=== PATIENT | male | born 1960 | race African-American/Black ===

== ENCOUNTER 2016-11-26 23:06 | Inpatient (IN) | payer MEDICAID ==
[~2016-11-26] VITALS: Ht 188 cm; Wt 122.5 kg
[2016-11-26 23:02] VITALS: O2SAT 99
[~2016-11-26 23:06] MED LIST: ACYC-1 PO; ALBU.5I INH; AMLO10 PO; LIDO2SOL MT; LISI-360 PO
[2016-11-26 23:11] VITALS: PULSE 117; RESP 18; TEMP 98.3; O2SAT 95
--- NOTE | 2016-11-26 23:20 | PD ---
HPI Chief Complaint: Respiratory Distress Time Seen by Provider: 23:11 Travel History International Travel<30 days: No Contact w/Intl Traveler<30days: No Traveled to known affect area: No History of Present Illness HPI The patient is a 56 year old male who presents to the [facility] emergency department with a history of shortness of breath that has been worsening throughout the day today. The patient prior to ambulance services arrival was attempting to use another nebulizer treatment when he became acutely in distress. The patient's O2 saturation at that point was in the 90s with a respiratory rate in the 60s with altered mentation, diaphoresis. The patient's blood sugar was noted to be 167 prior to arrival. The patient reportedly has a history of COPD, congestive heart failure, and hypertension. Due to the patient 's respiratory distress patient was intubated. The patient was given formal grams of Ativan and 20 mg of etomidate for intubation. The patient was intubated prior to arrival with a size endotracheal tube. The patient on arrival is coughing against the tube and moving in the bed. The patient is unable to provide any other history due to being intubated prior to arrival. [facility] Past Medical History Narrative Medical The patient's past medical history as it can for hypertension, COPD, congestive heart failure, obesity, HIV Past Surgical History Narrative Surgical The patient's past surgical history was unable to be obtained. Social History Alcohol Use: No Tobacco Use: No Substance Use: No Allergies-Medications (Allergen,Severity, Reaction): Coded Allergies: No Known Allergies (Unverified , 11/26/16) Reported Meds & Prescriptions Reported Meds & Active Scripts Active Reported Tramadol (Tramadol HCl) 50 Mg Tab 50 Mg PO Q8H PRN Metformin (Metformin HCl) 500 Mg Tab 500 Mg PO BIDPC With meals Atorvastatin (Atorvastatin Calcium) 40 Mg Tab 40 Mg PO HS Epzicom (Abacavir-Lamivudine) 600-300 Mg Tab 1 Tab PO DAILY Hazardous agent; use appropriate precautions for handling & disposal. Prezcobix (Darunavir-Cobicistat) 800-150 Mg Tab 1 Tab PO DAILY Sulfamethoxazole-Tmp Ss Tablet (Sulfamethoxazole/Trimethoprim) 400 Mg-80 Mg Tablet Calcium 600 with Vitamin D (Calcium Carbonate-Cholecalciferol) 600-400 mg-Unit Tab 1 Tab PO DAILY Flexeril (Cyclobenzaprine HCl) 10 Mg Tab 10 Mg PO TID Gabapentin 300 Mg Cap 300 Mg PO HS Review of Systems ROS Limitations: Intubated Respiratory: Positive: Shortness of Breath Physical Exam Narrative General: The patient is a well-developed well-nourished male, intubated on arrival, cough against the endotracheal tube, agitated Head and Neck exam: Head is normocephalic atraumatic. Eyes: Pupils are equal round and reactive to light. The patient appears to have exophthalmos. Nose: Midline septum with pink mucous membranes Mouth: Dentition unremarkable. Moist mucus membranes. The patient has endotracheal tube in place that is obscured the posterior oropharynx being examined. Neck: No palpable lymphadenopathy. No nuchal rigidity. No thyromegaly. Cardiovascular: Sinus tachycardia in the 120s without murmurs, gallops, or rubs. No pulse deficit to the extremities and simultaneous auscultation and palpation of his radial artery. Lungs: Expiratory wheezes are audible anteriorly. The patient has crackles audible in bilateral bases. The patient is tachypneic with accessory muscle use. Abdomen: Soft, without tenderness to palpation in all 4 quadrants of the abdomen. No guarding, rebound, or rigidity. Normal bowel sounds are audible. No tenderness on palpation of McBurney's point. The patient has an umbilical hernia that is easily reducible. The patient has rectus diastases noted. Extremities: No clubbing or cyanosis. The patient has trace to 1+ pitting edema bilateral lower extremities. 2+ pulses in all 4 extremities. Neurologic Exam: Neurologic examination is limited as the patient was intubated prior to arrival. The patient is awake on arrival to this facility and moving all extremities equally, attempting to remove the endotracheal tube, coughing against the endotracheal tube on exam. Otherwise he is not following any commands. Skin Exam: No rash noted. Intact skin that is warm and dry. Data Data Last Documented VS Vital Signs Date Time Temp Pulse Resp B/P Pulse Ox O2 Delivery O2 Flow Rate FiO2 11/27/16 00:00 101 16 155/90 100 Ventilator 100 11/26/16 23:11 98.3 Orders Electrocardiogram (11/26/16 23:12) Complete Blood Count With Diff (11/26/16 23:12) Comprehensive Metabolic Panel (11/26/16 23:12) Creatine Kinase (Cpk) (11/26/16 23:12) Ckmb (Isoenzyme) Profile (11/26/16 23:12) Troponin I (11/26/16 23:12) B-Type Natriuretic Peptide (11/26/16 23:12) Prothrombin Time / Inr (Pt) (11/26/16 23:12) Act Partial Throm Time (Ptt) (11/26/16 23:12) Arterial Blood Gas (Abg) (11/26/16 23:12) Blood Culture (11/26/16:12) C-Reactive Protein (Crp) (11/26/16 23:12) Lipase (11/26/16 23:12) Urinalysis - C+S If Indicated (11/26/16 23:12) Magnesium (Mg) (11/26/16 23:) Thyroid Stimulating Hormone (11/26/16 23:12) Chest, Single Ap (11/26/16 23:12) Iv Access Insert/Monitor (11/26/16 23:12) Ecg Monitoring (11/26/16:12) Oximetry (11/26/16 23:12) Drug Screen, Random Urine (11/26/16 23:12) Alcohol (Ethanol) (11/26/16 23:12) Salicylates (Aspirin) (11/26/16 23:12) Tylenol (Acetaminophen) (11/26/16 23:12) Lactic Acid Sepsis Protocol (11/26/16 23:12) Urinary Catheter Insert/Apply (11/26/16 23:12) Juliet-Gastric Tube Insert/Mon (11/26/16 23:12) Propofol 1000 Mg/100 Ml Inj (Diprivan 10 (11/26/16 23:15) ^ Infusion (11/26/16 23:15) RASS (11/26/16 23:15) Neurological Rass Scale LESLIE.Q2H (11/26/16 23:15) Sodium Chloride 0.9% Flush (Ns Flush) (11/26/16 23:30) Furosemide Inj (Lasix Inj) (11/26/16 23:30) Methylprednisolone So Succ Inj (Solumedr (11/26/16 23:30) Albuterol-Ipratropium Neb (Duoneb Neb) (11/26/16 23:30) Midazolam Inj (Versed Inj) (11/26/16 23:30) Midazolam 100 Mg/Ml Inj (Versed 100 Mg/M (11/26/16 23:30) Neurological Rass Scale Q30MX2,Q2HX4,Q4H (11/26/16 23:28) Fentanyl Drip (Fentanyl Drip) (11/26/16 23:29) Midazolam Inj (Versed Inj) (11/26/16 23:34) Midazolam 100 Mg/Ml Inj (Versed 100 Mg/M (11/26/16 23:51) Neurological Rass Scale Q30MX2,Q2HX4,Q4H (11/26/16 23:53) Fentanyl Drip (Fentanyl Drip) (11/27/16 00:00) Ct Brain W/O Iv Contrast(Rout) (11/27/16 00:26) Admit Order (Ed Use Only) (11/27/16 00:31) CKMB (11/26/16 23:35) CKMB% (11/26/16 23:35) Labs Laboratory Tests Test 11/26/16 11/27/16 23:35 00:20 White Blood Count 12.3 TH/MM3 Red Blood Count 6.04 MIL/MM3 Hemoglobin 18.0 GM/DL Hematocrit 54.4 % Mean Corpuscular Volume 90.1 FL Mean Corpuscular Hemoglobin 29.8 PG Mean Corpuscular Hemoglobin 33.1 % Concent Red Cell Distribution Width 16.1 % Platelet Count 181 TH/MM3 Mean Platelet Volume 9.2 FL Neutrophils (%) (Auto) 69.9 % Lymphocytes (%) (Auto) 17.8 % Monocytes (%) (Auto) 8.4 % Eosinophils (%) (Auto) 2.9 % Basophils (%) (Auto) 1.0 % Neutrophils # (Auto) 8.6 TH/MM3 Lymphocytes # (Auto) 2.2 TH/MM3 Monocytes # (Auto) 1.0 TH/MM3 Eosinophils # (Auto) 0.4 TH/MM3 Basophils # (Auto) 0.1 TH/MM3 CBC Comment DIFF FINAL Differential Comment Prothrombin Time 10.7 SEC Prothromb Time International 1.0 RATIO Ratio Activated Partial 28.0 SEC Thromboplast Time Sodium Level 140 MEQ/L Potassium Level 3.7 MEQ/L Chloride Level 103 MEQ/L Carbon Dioxide Level 25.1 MEQ/L Anion Gap 12 MEQ/L Blood Urea Nitrogen 13 MG/DL Creatinine 2.03 MG/DL Estimat Glomerular Filtration 42 ML/MIN Rate Random Glucose 113 MG/DL Lactic Acid Level 5.0 mmol/L Calcium Level 9.2 MG/DL Magnesium Level 2.1 MG/DL Total Bilirubin 0.4 MG/DL Aspartate Amino Transf 23 U/L (AST/SGOT) Alanine Aminotransferase 24 U/L (ALT/SGPT) Alkaline Phosphatase 71 U/L Total Creatine Kinase 469 U/L Creatine Kinase MB 6.0 NG/ML Creatine Kinase MB % 1.3 % Troponin I 0.40 NG/ML C-Reactive Protein 1.68 MG/DL B-Type Natriuretic Peptide 32 PG/ML Total Protein 8.5 GM/DL Albumin 4.0 GM/DL Lipase 187 U/L Thyroid Stimulating Hormone 0.837 uIU/ML 3rd Gen Salicylates Level LESS THAN 1.7 MG/DL Acetaminophen Level LESS THAN 2.0 MCG/ML Ethyl Alcohol Level LESS THAN 3 MG/DL Blood Gas Puncture Site RT RADIAL Blood Gas Patient Temperature 98.6 Blood Gas HCO3 29 mmol/L Blood Gas Base Excess 3.3 mmol/L Blood Gas Oxygen Saturation 96 % Arterial Blood pH 7.35 Arterial Blood Partial 54 mmHg Pressure CO2 Arterial Blood Partial 116 mmHG Pressure O2 Arterial Blood Oxygen Content 24.7 Vol % Arterial Blood 1.1 % Carboxyhemoglobin Arterial Blood Methemoglobin 0.8 % Blood Gas Hemoglobin 18.2 G/DL Oxygen Delivery Device VENTILATOR Blood Gas Ventilator Setting AC16/500/5PEEP Blood Gas Inspired Oxygen 10 % MDM Medical Decision Making Medical Screen Exam Complete: Yes Emergency Medical Condition: Yes Medical Record Reviewed: Yes Interpretation(s) Last Impressions Chest X-Ray 11/26/16 3358 Signed Impressions: Service Date/Time: Saturday, November 26, 2016 23:10 - CONCLUSION: ET tube in good position. Jone Reyes MD Differential Diagnosis Congestive heart failure exacerbation, versus COPD exacerbation, versus pneumonia, versus pleural effusion, versus pneumothorax Narrative Course During the course of the patients emergency department visit, the patients history, examination, and differential diagnosis were reviewed with the patient. The patient had IV access obtained and blood work sent for analysis. The patient had an EKG done on arrival. The patient's EKG shows a sinus rhythm with a sinus tachycardia rate of 114, no acute ST segment elevation or depression. QRS duration is 94 ms, QTC 393 ms. Respiratory therapy was available at the patient's bedside to assist with care and placement of the patient on a ventilator. An ABG was ordered on the ventilator. The patient was initially provided propofol for sedation on the ventilator. The patient continued to be agitated and was given fentanyl for sedation as an IV drip. The patient was given Solu-Medrol 125 mg IV, DuoNeb 3. The patient was given Lasix 80 mg IV. Again, the patient continued to be agitated and bucking the vent. The patient was placed on Versed 2.5 mg IV followed by a Versed drip. The patients laboratory studies were reviewed and remarkable for a white count of 12.3, hemoglobin 18, platelets 181 with 8.4 monocytes. CMP is remarkable for creatinine of 2.03, glucose 113, CPK 469, MB percent 1.3, troponin I 0.40, C -reactive protein 1.60, BNP 32, lipase 187, TSH 0.837, PT PTT within normal limits. Salicylate less than 1.7, acetaminophen less than 2, alcohol less than 3 Radiology studies were reviewed and remarkable for a chest x-ray that shows an endotracheal tube to be in good position, cardiomegaly, no other acute abnormality. CT scan of the brain shows no acute abnormality. The patients results were discussed with the patient, including the plan of care. I explained that further testing and/ or monitoring is indicated based on the patients history, examination, and/ or laboratory findings. Therefore, I recommended admission for additional evaluation. The patient expressed understanding and was agreeable with this plan. The patient was admitted to the hospital in guarded condition and sent to a bed under the care of the geodetic surveyor technologist service. Critical Care Narrative Aggregate critical care time was 35 minutes. Time to perform other separately billable procedures was not included in the critical care time. My time did not include minutes spent treating any other patients simultaneously or on activities that did not directly contribute to the patient's treatment. The services I provided to this patient were to treat and/or prevent clinically significant deterioration that could result in: Cardiovascular collapse, versus hypoxemia, versus cardiac arrhythmia I provided critical care services requiring my management, as noted below: Chart data review, documentation time, medication orders and management, vital sign assessments/reviewing monitor data, ordering and reviewing lab tests, ordering and interpreting/reviewing x-rays and diagnostic studies, care of the patient and discussion of the patient with the admitting physicians. Physician Communication Physician Communication The patient's case was discussed with Dr. Klein who did agree to admit the patient for further evaluation and treatment at this time. Diagnosis Primary Impression: Respiratory failure Qualified Code: J96.00 - Acute respiratory failure, unspecified whether with hypoxia or hypercapnia Additional Impression: Hypercapnia Admitting Information Admitting Physician Requests: Admit Jolene Ortega MD Nov 26, 2016 23:20
[2016-11-26] MEDS: PROPOFOL 1000 MG/100 ML INJ 100 ML IV SCH (23:22)
[2016-11-26 23:24] VITALS: PULSE 110; RESP 16; O2SAT 100
[2016-11-26] MEDS ORDERED: fentaNYL DRIP 250 ML ONE (23:29)
[2016-11-26] MEDS ORDERED: MIDAZOLAM HCL 5 MG/5 ML VIAL IV PUSH ONE (23:30)
[2016-11-26] MEDS ORDERED: MIDAZOLAM 100 MG/100 ML INJ 100 ML IV SCH (23:30)
[2016-11-26] MEDS ORDERED: FUROSEMIDE 100 MG/10 ML VIAL IVP ONE (23:30)
[2016-11-26] MEDS ORDERED: SODIUM CHLORIDE 0.9% FLUSH 10 ML FLUSH IVF PRN (23:30)
[2016-11-26] MEDS ORDERED: methylPREDNISolone SOD SUCC 125 MG/2 ML VIAL IVP ONE (23:30)
[2016-11-26] MEDS: RESP: ALBUTEROL 2.5 MG/IPRATROPIUM 0.5 MG NEB (SCH) INH (23:33)
[2016-11-26] MEDS ORDERED: MIDAZOLAM HCL 5 MG/ML VIAL (1 ML) ONE (23:34)
[2016-11-26] MEDS ORDERED: MIDAZOLAM 100 MG/100 ML INJ 100 ML ONE (23:51)
[2016-11-26] MEDS: fentaNYL DRIP 250 ML IV SCH (23:59)
[2016-11-27] VITALS (31 sets, daily range): BP systolic 104–155; BP diastolic 63–99; PULSE 79–103; RESP 13–24; TEMP 97.7–99.2; O2SAT 94–100
[2016-11-27 00:03] LABS: AUTOMATED NEUTROPHIL # 8.6 TH/MM3 (1.8-7.7); BASOPHIL # 0.1 TH/MM3 (0-0.2); EOSINOPHIL # 0.4 TH/MM3 (0-0.4); EOSINOPHIL % 2.9 % (0.0-4.0); HEMATOCRIT 54.4 % (39.0-51.0); HEMO FLAGS DIFF FINAL; LYMPH % 17.8 % (9.0-44.0); LYMPHOCYTE # 2.2 TH/MM3 (1.0-4.8); MEAN CELL VOLUME 90.1 FL (80.0-100.0); MEAN CORPUSCULAR HEMOGLOBIN 29.8 PG (27.0-34.0); MEAN CORPUSCULAR HGB CONC 33.1 % (32.0-36.0); MONO % 8.4 % (0.0-8.0); NEUT % 69.9 % (16.0-70.0); PLATELET COUNT 181 TH/MM3 (150-450); RED BLOOD COUNT 6.04 MIL/MM3 (4.50-5.90); RED CELL DISTRIBUTION WIDTH 16.1 % (11.6-17.2); WHITE BLOOD COUNT 12.3 TH/MM3 (4.0-11.0)
--- NOTE | 2016-11-27 00:11 | RADRPT ---
EXAM DATE/TIME: 11/26/2016 23:10 [facility] COMPARISON: No previous studies available for comparison. INDICATIONS : Post intubation. MEDICAL HISTORY : Unobtainable. SURGICAL HISTORY : Unobtainable. ENCOUNTER: Initial ACUITY: 1 day PAIN SCORE: Non-responsive. LOCATION: Bilateral chest FINDINGS: Endotracheal tube tip well above the halina. Gastric tube traverses the [id number]. Moderate car diomegaly. Central bronchopleural markings well delineated. No focal infiltrates seen. CONCLUSION: ET tube in good position. Jone Reyes MD on November 27, 2016 at 0:10 Board Certified Radiologist. This report was verified electronically.
[2016-11-27 00:14] LABS: PROTHROMBIN TIME - PATIENT 10.7 SEC (9.8-11.6)
[2016-11-27 00:42] LABS: BLOOD GAS BASE EXCESS 3.3 mmol/L (-2-2); BLOOD GAS CARBOXYHEMOGLOBIN 1.1 % (0-4); BLOOD GAS HCO3 29 mmol/L (22-26); BLOOD GAS METHEMOGLOBIN 0.8 % (0-2); BLOOD GAS O2 HGB SATURATION 96 % (90-100); BLOOD GAS OXYGEN CONTENT 24.7 Vol % (12.0-20.0); BLOOD GAS PCO2 54 mmHg (38-42); BLOOD GAS PO2 116 mmHG (61-120); BLOOD GAS TOTAL HGB 18.2 G/DL (12.0-16.0); TEMP CORR TO 98.6
[2016-11-27 00:43] LABS: CRITICAL VALUE YES; DRAW SITE RT RADIAL; FIO2 10 %; NUMBER OF ARTERIAL PUNCTURES 1; OXYGEN DEVICE VENTILATOR; STAT YES; ULNAR PULSE PRESENT; VENT SETTINGS AC16/500/5PEEP
[2016-11-27 00:48] LABS: ALKALINE PHOSPHATASE 71 U/L (45-117); ALT (GPT) 24 U/L (12-78); ANION GAP 12 MEQ/L (5-15); AST (GOT) 23 U/L (15-37); BICARBONATE 25.1 MEQ/L (21.0-32.0); BLOOD UREA NITROGEN 13 MG/DL (7-18); CHLORIDE 103 MEQ/L (98-107); CREATINE KINASE 469 U/L (39-308); GLOMERULAR FILTRATION RATE 42 ML/MIN (>89); MAGNESIUM 2.1 MG/DL (1.5-2.5); POTASSIUM 3.7 MEQ/L (3.5-5.1); SODIUM (NA) 140 MEQ/L (136-145); TOTAL BILIRUBIN ADULT 0.4 MG/DL (0.2-1.0)
[2016-11-27 00:49] LABS: ACETAMINOPHEN LESS THAN 2.0 MCG/ML (10.0-30.0); ALCOHOL LESS THAN 3 MG/DL (0-5)
[2016-11-27] MEDS ORDERED: RESP: ALBUTEROL 2.5 MG/3 ML NEB (PRN) INH (01:00)
[2016-11-27] MEDS ORDERED: MISCELLANEOUS NURSING INFORMATION XX SCH (01:00)
[2016-11-27] MEDS ORDERED: SODIUM CHLORIDE 0.9% FLUSH 10 ML FLUSH IV FLUSH PRN (01:00)
[2016-11-27] MEDS ORDERED: CHLORHEXIDINE GLUCONATE 2 % 1 PACK (2 CLOTHS) TOP PRN (01:00)
[2016-11-27] MEDS ORDERED: ACETAMINOPHEN 325 MG TAB PO PRN (01:00)
[2016-11-27] MEDS ORDERED: DARU1TAB2 PO (01:03)
[2016-11-27] MEDS ORDERED: GABA300C5 PO (01:03)
[2016-11-27] MEDS ORDERED: TRAM50TA PO (01:03)
[2016-11-27] MEDS ORDERED: CYCL1TAB29 PO (01:03)
[2016-11-27] MEDS ORDERED: CALC1TAB87 PO (01:03)
[2016-11-27] MEDS ORDERED: SULF1TAB58 (01:03)
[2016-11-27] MEDS ORDERED: METF500T PO (01:03)
[2016-11-27] MEDS ORDERED: ATOR40TA16 PO (01:03)
[2016-11-27] MEDS ORDERED: METF-758 (01:03)
[2016-11-27] MEDS ORDERED: EPZITAB3 PO (01:03)
--- NOTE | 2016-11-27 01:37 | HHI.HP ---
HPI Service Critical Care Medicine Primary Care Physician Unknown Admission Diagnosis Respiratory failure Diagnosis: Travel History International Travel<30 Days: No Contact w/Intl Traveler <30 Da: No Traveled to Known Affected Are: No Sepsis Criteria Sepsis Criteria (SIRS+source): Infect source susp/known Severe Sepsis (+one): Lactate >2 Multiple Organ Dysfunction Syn: Evidence -2 organs failing Criteria Outcome: Meets severe sepsis criteria History of Present Illness HPI 56-year-old male was brought to the ER with a history of progressive shortness of breath for about a day. EMS was called by patient's and on their arrival he was maintaining O2 sats in the 90s however was breathing in the 60s with altered mental status and diaphoresis. Reportedly earlier in the day he had hit his head pretty hard while reaching for his nebulizer and since then had altered mental status. Patient received Ativan and etomidate in the field and was intubated prior to arrival in the ER. He was placed on propofol/ fentanyl and subsequently on Versed gtt by ER physician due to agitation. [facility] Past Medical History Narrative Medical The patient's past medical history as it can for hypertension, COPD, congestive heart failure, obesity, HIV Allergies-Medications (Allergen,Severity, Reaction): Coded Allergies: No Known Allergies (Unverified , 11/26/16) Reported Meds & Prescriptions Reported Meds & Active Scripts Active Zovirax 800 Mg Tab (Acyclovir) 800 Mg Tab 800 Mg PO 5 TIMES A DAY 7 Days Lidocaine Viscous (Lidocaine HCl) 2 % [place] 2 % MT Q3-4HPRN 1 Days Reported Lisinopril 10 Mg Tab 10 Mg PO DAILY Norvasc (Amlodipine Besylate) 10 Mg Tab 10 Mg PO DAILY Proventil Conc Ud 0.5% (2.5 Mg/0.5 Ml) (Albuterol Sulfate) 2.5 Mg/0.5 Ml Inha 2.5 Mg INH other meds to be clarified Review of Systems ROS Limitations: Intubated Respiratory: Positive: Shortness of Breath Physical Exam Past Family Social History Allergies: Coded Allergies: No Known Allergies (Unverified , 11/26/16) Physical Exam Vital Signs Vital Signs Date Time Temp Pulse Resp B/P Pulse Ox O2 Delivery O2 Flow Rate FiO2 11/27/16 00:36 103 16 144/90 100 Ventilator 11/27/16 00:00 101 16 155/90 100 Ventilator 100 11/26/16 23:24 110 16 100 Ventilator 100 11/26/16 23:14 112 20 100 11/26/16 23:11 98.3 117 18 95 Physical Exam Narrative General: The patient is a well-developed well-nourished male, currently sedated, orally intubated on mechanical ventilation. Head and Neck exam: Head is normocephalic atraumatic. Eyes: Pupils are equal round and reactive to light. Nose: Midline septum with pink mucous membranes Mouth: Dentition unremarkable. Moist mucus membranes. ETT in place Neck: No palpable lymphadenopathy. No nuchal rigidity. No thyromegaly. Cardiovascular: S1-S2 regular no gallop or murmur. Lungs: Orally intubated on mechanical ventilation, and entry decreased bilaterally at bases, scattered crackles and rhonchi. No wheezing appreciated currently Abdomen: Soft, without tenderness to palpation in all 4 quadrants of the abdomen. No guarding, rebound, or rigidity. Normal bowel sounds are audible. No tenderness on palpation of McBurney's point. The patient has an umbilical hernia that is easily reducible. The patient has rectus diastases noted. Extremities: No clubbing or cyanosis. The patient has trace to 1+ pitting edema bilateral lower extremities. 2+ pulses in all 4 extremities. Neurologic Exam: Neurologic examination is limited as the patient was intubated prior to arrival. Currently sedated, orally intubated on mechanical ventilation. Reportedly was difficult to sedate and was moving all 4 extremities though not following commands following arrival in the ER. Pupils 3 mm bilaterally reactive Skin Exam: No rash noted. Intact skin that is warm and dry. Laboratory Laboratory Tests Test 11/26/16 11/27/16 23:35 00:20 White Blood Count 12.3 Red Blood Count 6.04 Hemoglobin 18.0 Hematocrit 54.4 Mean Corpuscular Volume 90.1 Mean Corpuscular Hemoglobin 29.8 Mean Corpuscular Hemoglobin 33.1 Concent Red Cell Distribution Width 16.1 Platelet Count 181 Mean Platelet Volume 9.2 Neutrophils (%) (Auto) 69.9 Lymphocytes (%) (Auto) 17.8 Monocytes (%) (Auto) 8.4 Eosinophils (%) (Auto) 2.9 Basophils (%) (Auto) 1.0 Neutrophils # (Auto) 8.6 Lymphocytes # (Auto) 2.2 Monocytes # (Auto) 1.0 Eosinophils # (Auto) 0.4 Basophils # (Auto) 0.1 CBC Comment DIFF FINAL Differential Comment Prothrombin Time 10.7 Prothromb Time International 1.0 Ratio Activated Partial 28.0 Thromboplast Time Sodium Level 140 Potassium Level 3.7 Chloride Level 103 Carbon Dioxide Level 25.1 Anion Gap 12 Blood Urea Nitrogen 13 Creatinine 2.03 Estimat Glomerular Filtration 42 Rate Random Glucose 113 Lactic Acid Level 5.0 Calcium Level 9.2 Magnesium Level 2.1 Total Bilirubin 0.4 Aspartate Amino Transf 23 (AST/SGOT) Alanine Aminotransferase 24 (ALT/SGPT) Alkaline Phosphatase 71 Total Creatine Kinase 469 Creatine Kinase MB 6.0 Creatine Kinase MB % 1.3 Troponin I 0.40 C-Reactive Protein 1.68 B-Type Natriuretic Peptide 32 Total Protein 8.5 Albumin 4.0 Lipase 187 Thyroid Stimulating Hormone 0.837 3rd Gen Salicylates Level LESS THAN 1.7 Acetaminophen Level LESS THAN 2.0 Ethyl Alcohol Level LESS THAN 3 Blood Gas Puncture Site RT RADIAL Blood Gas Patient Temperature 98.6 Blood Gas HCO3 29 Blood Gas Base Excess 3.3 Blood Gas Oxygen Saturation 96 Arterial Blood pH 7.35 Arterial Blood Partial 54 Pressure CO2 Arterial Blood Partial 116 Pressure O2 Arterial Blood Oxygen Content 24.7 Arterial Blood 1.1 Carboxyhemoglobin Arterial Blood Methemoglobin 0.8 Blood Gas Hemoglobin 18.2 Oxygen Delivery Device VENTILATOR Blood Gas Ventilator Setting AC16/500/5PEEP Blood Gas Inspired Oxygen 10 Date/Time Procedure Status Source Growth 11/26/16 23:35 Aerobic Blood Culture Received Blood Peripheral Pending 11/26/16 23:35 Anaerobic Blood Culture Received Blood Peripheral Pending Result Diagram: 11/26/16 2335 11/26/16 2335 Imaging Last Impressions Chest X-Ray 11/26/16 2312 Signed Impressions: Service Date/Time: Saturday, November 26, 2016 23:10 - CONCLUSION: ET tube in good position. Jone Reyes MD Septic Shock Reassessment Lungs: Course Skin: Warm Peripheral Pulses: Bounding Right Radial Capillary Refill: Brisk Assessment and Plan Assessment and Plan 56-year-old male with: Acute respiratory failure requiring mechanical ventilation Suspected COPD exacerbation Suspect obesity hypoventilation Possible severe sepsis based on criteria Positive troponin Morbid obesity HIV positive History of CHF History of hypertension Plan: Neuro: Sedation with propofol/Versed/fentanyl gtt., daily sedation vacation. Awaiting head CT in view of altered mental status prior to arrival. Cardiovascular: Watch for hypotension. We will use labetalol when necessary for hypertension as needed. Cycle cardiac enzymes. Borderline elevated troponin noted. If head CT negative for bleed we'll initiate aspirin. BNP not elevated currently. We'll initiate maintenance IV fluids. Pulmonary: Continue mechanical ventilation, vent bundle, bronchodilators, Solu- Medrol. ID: Follow-up sputum and blood cultures. We'll initiate empiric antibiotic coverage with IV cefepime and Zithromax. HIV positive. Awaiting clarification of antiretroviral meds. Repeat lactic acid level with next lab draw Heme: Follow CBC. Polycythemia noted probably secondary to chronic hypoxia. Endocrine: SSI for glycemic control as needed. GI: Start tube feeds with Glucerna 1.5 and advanced to goal as tolerated. Prophylaxis: PPI/SCDs. If head CT negative, plan to initiate subcutaneous heparin. Condition critical. Time spent on critical care excluding procedures 60 minutes Akira Klein MD Nov 27, 2016 01:37
[2016-11-27 01:51] LABS: LACTIC ACID GHOST NOT REPORTABLE
[2016-11-27 02:22] LABS: BACTERIA, URINE MOD /hpf; BLOOD, URINE SMALL (NEG); GLUCOSE,URINE NEG (NEG); HYALINE CAST, URINE 22 /lpf (RARE); KETONE, URINE NEG (NEG); MUCUS URINE FEW /lpf (OCC); NITRITE,URINE NEG (NEG); PH, URINE 5.5 (5.0-8.5); RENAL EPITHELIAL CELLS 4 /hpf; SQUAMOUS EPITHELIAL CELL URINE <1 /hpf (0-5); URINE COLOR YELLOW (YELLW/STRAW)
[2016-11-27 02:25] LABS: COMMENT (UR) CULTURE INDICATED; CULTURE IF INDICATED CULTURE INDICATED
--- NOTE | 2016-11-27 02:35 | RADRPT ---
EXAM DATE/TIME: 11/27/2016 02:21 [facility] COMPARISON: No previous studies available for comparison. INDICATIONS : Altered mental status. Family states patient hit head earlier today. RADIATION DOSE: 50.94 CTDIvol (mGy) MEDICAL HISTORY : Non-responsive. SURGICAL HISTORY : Non-responsive. ENCOUNTER: Initial ACUITY: 1 day PAIN SCALE: Non-responsive LOCATION: cranial TECHNIQUE: Multiple contiguous axial images were obtained of the head. Using automated exposure control and adj ustment of the mA and/or kV according to patient size, radiation dose was kept as low as reasonably a chievable to obtain optimal diagnostic quality images. DICOM format image data is available electro nically for review and comparison. FINDINGS: Patient's head is canted in the gantry. CEREBRUM: The ventricles are normal for age. No evidence of midline shift, mass lesion, hemorrhage or acute in farction. No extra-axial fluid collections are seen. POSTERIOR FOSSA: The cerebellum and brainstem are intact. The 4th ventricle is midline. The cerebellopontine angle i s unremarkable. EXTRACRANIAL: The visualized portion of the orbits is intact. SKULL: The calvaria is intact. No evidence of skull fracture. CONCLUSION: No acute findings in the brain. Jone Reyes MD on November 27, 2016 at 2:32 Board Certified Radiologist. This report was verified electronically.
[2016-11-27] MEDS: AZITHROMYCIN INJ 500 MG in SODIUM CHLOR 0.9% 250 ML INJ 250 ML IV SCH (03:30)
[2016-11-27] MEDS: RESP: ALBUTEROL 2.5 MG/IPRATROPIUM 0.5 MG NEB (SCH) NEB ×4 (03:34→19:43)
[2016-11-27] MEDS: SODIUM CHLOR 0.9% 1000 ML INJ 1,000 ML IV SCH ×2 (03:42→21:13)
[2016-11-27] MEDS: CEFEPIME INJ 2,000 MG in SODIUM CHLORIDE 0.9% INJ 100 ML IV SCH ×2 (03:45→13:12)
[2016-11-27] MEDS: CHLORHEXIDINE GLUCONATE 2 % 1 PACK (2 CLOTHS) TOP SCH (03:47)
[2016-11-27] MEDS: PROPOFOL 1000 MG/100 ML INJ 100 ML IV SCH ×6 (03:48→22:39)
[2016-11-27] MEDS: INSULIN ASPART SUPPLEMENTAL SCALE SQ SCH ×3 (05:40→18:00)
[2016-11-27] MEDS: SODIUM CHLORIDE 0.9% FLUSH 10 ML FLUSH IV FLUSH SCH ×2 (07:37→21:07)
[2016-11-27] MEDS: PANTOPRAZOLE SODIUM 40 MG VIAL IV SCH (07:37)
[2016-11-27] MEDS: CHLORHEXIDINE 0.12% (ORAL KIT) 15 ML CUP MT SCH ×2 (07:37→20:00)
[2016-11-27 08:19] LABS: CKMB 5.3 NG/ML (0.5-3.6)
[2016-11-27] MEDS: ABACAVIR SULFATE 300 MG TAB PO SCH (08:44)
[2016-11-27] MEDS ORDERED: NON-FORMULARY DRUG (Abacavir-Lamivudine (Epzicom) 1 TAB) PO SCH (09:00)
[2016-11-27] MEDS ORDERED: PATIENT OWN MEDICATION PO SCH (09:00)
[2016-11-27 12:14] LABS: BLOOD GAS BASE EXCESS -1.3 mmol/L (-2-2); BLOOD GAS CARBOXYHEMOGLOBIN 1.2 % (0-4); BLOOD GAS HCO3 23 mmol/L (22-26); BLOOD GAS METHEMOGLOBIN 1.1 % (0-2); BLOOD GAS O2 HGB SATURATION 94 % (90-100); BLOOD GAS OXYGEN CONTENT 22.8 Vol % (12.0-20.0); BLOOD GAS PCO2 43 mmHg (38-42); BLOOD GAS PO2 83 mmHg (61-120); BLOOD GAS TOTAL HGB 17.3 G/DL (12.0-16.0); CRITICAL VALUE NO; DRAW SITE RRA; FIO2 40 %; NUMBER OF ARTERIAL PUNCTURES 1; OXYGEN DEVICE VENTILATOR; STAT NO; TEMP CORR TO 98.6; ULNAR PULSE PRESENT; VENT SETTINGS PRVC16/600 PEEP5 1.0
[2016-11-27 14:51] LABS: CKMB 4.1 NG/ML (0.5-3.6)
--- NOTE | 2016-11-27 18:21 | ECHRPT ---
Indication: CONCLUSIONS Normal left ventricular size. Severe concentric left ventricular hypertrophy. The left ventricular systolic function is hyperdynamic with an estimated ejection fraction in the ra nge of 65- 70%. No regional wall motion abnormalities are present. Slight aortic valve sclerosis is present. Mild aortic valve regurgitation. The pulmonary valve is not well visualized. BP: 112 / 67 HR: 91 Rhythm: Sinus MEASUREMENTS (Male / Female) Normal Values Technical Quality:Technically difficult study 2D ECHO LV Diastolic Diameter PLAX 3.6 cm 4.2 - 5.9 / 3.9 - 5.3 cm LV Systolic Diameter PLAX 2.2 cm IVS Diastolic Thickness 2.5 cm 0.6 - 1.0 / 0.6 - 0.9 cm LVPW Diastolic Thickness 2.5 cm 0.6 - 1.0 / 0.6 - 0.9 cm LV Relative Wall Thickness 1.4 RV Internal Dim ED PLAX 2.3 cm LVOT Diameter 2.6 cm M-MODE Aortic Root Diameter MM 4.1 cm DOPPLER AV Peak Velocity 151.0 cm/s AV Peak Gradient 9.1 mmHg AI Peak Velocity 321.5 cm/s AI Peak Gradient 41.3 mmHg AI Pressure Half Time 615.5 ms LVOT Peak Velocity 115.0 cm/s LVOT Peak Gradient 5.3 mmHg AV Area Cont Eq pk 4.0 cm MV Area PHT 3.9 cm Mitral E Point Velocity 54.8 cm/s Mitral A Point Velocity 74.0 cm/s Mitral E to A Ratio 0.7 PV Peak Velocity 117.0 cm/s PV Peak Gradient 5.5 mmHg FINDINGS LEFT VENTRICLE Normal left ventricular size. Severe concentric left ventricular hypertrophy. The left ventricular systolic function is hyperdynamic with an estimated ejection fraction in the ra nge of 65- 70%. No regional wall motion abnormalities are present. RIGHT VENTRICLE Normal right ventricular size and systolic function. LEFT ATRIUM The left atrial size is normal. RIGHT ATRIUM The right atrial size is normal. ATRIAL SEPTUM Normal atrial septal thickness without atrial level shunting by limited color doppler interrogation. AORTA The aortic root and proximal ascending aorta are normal in size on limited imaging. MITRAL VALVE Structurally normal mitral valve. No mitral valve stenosis or regurgitation. AORTIC VALVE Slight aortic valve sclerosis is present. Mild aortic valve regurgitation. TRICUSPID VALVE Structurally normal tricuspid valve. No tricuspid valve stenosis or regurgitation. PULMONARY VALVE The pulmonary valve is not well visualized. VESSELS The inferior vena cava is normal in size. PERICARDIUM No pericardial effusion. Jose Ortega MD (Electronically Signed) Final Date:27 November 2016 18:20
[2016-11-27] MEDS ORDERED: SODIUM CHLORID 0.9% 500 ML INJ 500 ML IV ONE (19:00)
[2016-11-27] MEDS: ATORVASTATIN 40 MG TAB PO SCH (21:06)
[2016-11-27] MEDS: GABAPENTIN 300 MG CAP PO SCH (21:06)
[2016-11-27] MEDS: methylPREDNISolone SOD SUCC 125 MG/2 ML VIAL IV PUSH SCH (21:06)
[2016-11-27] MEDS: fentaNYL DRIP 250 ML IV SCH (22:40)
[2016-11-28] VITALS (27 sets, daily range): BP systolic 134–188; BP diastolic 80–107; PULSE 74–107; RESP 6–23; TEMP 98.2–100.2; O2SAT 91–100
[2016-11-28] MEDS: RESP: ALBUTEROL 2.5 MG/IPRATROPIUM 0.5 MG NEB (SCH) NEB ×4 (01:39→19:56)
[2016-11-28] MEDS: CEFEPIME INJ 2,000 MG in SODIUM CHLORIDE 0.9% INJ 100 ML IV SCH ×2 (02:59→16:33)
[2016-11-28] MEDS: AZITHROMYCIN INJ 500 MG in SODIUM CHLOR 0.9% 250 ML INJ 250 ML IV SCH (02:59)
[2016-11-28] MEDS: SODIUM CHLOR 0.9% 1000 ML INJ 1,000 ML IV SCH ×2 (03:00→11:59)
[2016-11-28] MEDS: CHLORHEXIDINE GLUCONATE 2 % 1 PACK (2 CLOTHS) TOP SCH (03:00)
[2016-11-28] MEDS: PROPOFOL 1000 MG/100 ML INJ 100 ML IV SCH ×7 (03:03→23:48)
[2016-11-28 05:22] LABS: BLOOD GAS BASE EXCESS -3.6 mmol/L (-2-2); BLOOD GAS CARBOXYHEMOGLOBIN 1.1 % (0-4); BLOOD GAS HCO3 21 mmol/L (22-26); BLOOD GAS METHEMOGLOBIN 1.1 % (0-2); BLOOD GAS O2 HGB SATURATION 92 % (90-100); BLOOD GAS OXYGEN CONTENT 21.6 Vol % (12.0-20.0); BLOOD GAS PCO2 42 mmHg (38-42); BLOOD GAS PO2 77 mmHg (61-120); BLOOD GAS TOTAL HGB 16.6 G/DL (12.0-16.0); CRITICAL VALUE NO; DRAW SITE LT BRACHIAL; FIO2 40 %; NUMBER OF ARTERIAL PUNCTURES 1; OXYGEN DEVICE VENTILATOR; TEMP CORR TO 98.6
[2016-11-28 05:23] LABS: STAT NO
[2016-11-28] MEDS: INSULIN ASPART SUPPLEMENTAL SCALE SQ SCH ×4 (06:00→18:00)
--- NOTE | 2016-11-28 06:03 | RADRPT ---
EXAM DATE/TIME: 11/28/2016 03:41 [facility] COMPARISON: CHEST SINGLE AP, November 26, 2016, 23:10. INDICATIONS : Shortness of breath, possible pulmonary disease. MEDICAL HISTORY : None. SURGICAL HISTORY : None. ENCOUNTER: Subsequent ACUITY: 2 days PAIN SCORE: Non-responsive. LOCATION: Bilateral chest FINDINGS: ET tube tip 1.3 cm above the halina. Gastric tube traverses the [id number]. Stable moderate card iomegaly. No focal consolidation. CONCLUSION: ET tube tip is close to the halina and needs to be withdrawn approximately 1 cm. Jone Reyes MD on November 28, 2016 at 6:01 Board Certified Radiologist. This report was verified electronically.
[2016-11-28 06:21] LABS: AUTOMATED NEUTROPHIL # 15.3 TH/MM3 (1.8-7.7); BASOPHIL % 0.1 % (0.0-2.0); HEMATOCRIT 49.4 % (39.0-51.0); HEMO FLAGS DIFF FINAL; LYMPH % 1.8 % (9.0-44.0); LYMPHOCYTE # 0.3 TH/MM3 (1.0-4.8); MEAN CELL VOLUME 91.2 FL (80.0-100.0); MEAN CORPUSCULAR HEMOGLOBIN 29.7 PG (27.0-34.0); MEAN CORPUSCULAR HGB CONC 32.5 % (32.0-36.0); MONO % 3.2 % (0.0-8.0); NEUT % 94.9 % (16.0-70.0); PLATELET COUNT 160 TH/MM3 (150-450); RED BLOOD COUNT 5.42 MIL/MM3 (4.50-5.90); RED CELL DISTRIBUTION WIDTH 15.8 % (11.6-17.2); WHITE BLOOD COUNT 16.1 TH/MM3 (4.0-11.0)
[2016-11-28 07:00] LABS: ALKALINE PHOSPHATASE 56 U/L (45-117); ALT (GPT) 21 U/L (12-78); ANION GAP 11 MEQ/L (5-15); AST (GOT) 37 U/L (15-37); BICARBONATE 21.7 MEQ/L (21.0-32.0); BLOOD UREA NITROGEN 32 MG/DL (7-18); CHLORIDE 106 MEQ/L (98-107); GLOMERULAR FILTRATION RATE 23 ML/MIN (>89); POTASSIUM 4.7 MEQ/L (3.5-5.1); SODIUM (NA) 139 MEQ/L (136-145); TOTAL BILIRUBIN ADULT 0.3 MG/DL (0.2-1.0)
[2016-11-28] MEDS: ABACAVIR SULFATE 300 MG TAB PO SCH (08:06)
[2016-11-28] MEDS: SODIUM CHLORIDE 0.9% FLUSH 10 ML FLUSH IV FLUSH SCH ×2 (08:07→22:25)
[2016-11-28] MEDS: PANTOPRAZOLE SODIUM 40 MG VIAL IV SCH (08:07)
[2016-11-28] MEDS: methylPREDNISolone SOD SUCC 125 MG/2 ML VIAL IV PUSH SCH ×2 (08:07→22:24)
[2016-11-28] MEDS: CHLORHEXIDINE 0.12% (ORAL KIT) 15 ML CUP MT SCH ×3 (08:07→20:00)
--- NOTE | 2016-11-28 08:36 | EKG ---
Date Performed: 11/26/2016 Time Performed: 23:22:57 PTAGE: 56 years EKG: SINUS TACHYCARDIA POSSIBLE LEFT ATRIAL ENLARGEMENT POSSIBLE LEFT VENTRICULAR HYPERTROPHY OK OBABLE INFERIOR MYOCARDIAL INFARCTION ABNORMAL ECG NO PREVIOUS TRACING DOCTOR: José Miguel Villagomez Interpretating Date/Time 11/28/2016 08:36:04
--- NOTE | 2016-11-28 16:24 | HHI.CCPN ---
Subjective Remarks/Hospital Course 56-year-old male was brought to the ER with a history of progressive shortness of breath for about a day. EMS was called by patient's and on their arrival he was maintaining O2 sats in the 90s however was breathing in the 60s with altered mental status and diaphoresis. Reportedly earlier in the day he had hit his head pretty hard while reaching for his nebulizer and since then had altered mental status. Patient received Ativan and etomidate in the field and was intubated prior to arrival in the ER. He was placed on propofol/ fentanyl and subsequently on Versed gtt by ER physician due to agitation. Subjective: 11/28: Afebrile. Patient was noted to be oliguric last evening, 500 cc bolus normal saline was provided, with no change in urine output. Creatinine noted to be increasing, Nephrology consulted. Renal ultrasound pending. The patient was noted to have gram-positive cocci bacteremia, currently on azithromycin and cefepime. Leukocytosis worsening, ID consulted. U tox ordered. Objective Vital Signs Date Time Temp Pulse Resp B/P Pulse Ox O2 Delivery O2 Flow Rate FiO2 11/28/16 12:28 93 40 11/28/16 08:00 98.5 79 19 143/83 11/27/16 01:15 Ventilator Intake and Output 11/27/16 11/27/16 11/28/16 08:00 16:00 00:00 Intake Total 749 ml 1140 ml 1208 ml Output Total 200 ml 225 ml 350 ml Balance 549 ml 915 ml 858 ml Result Diagram: 11/28/16 0438 11/28/16 0438 Other Results Microbiology Date/Time Procedure Status Source Growth 11/27/16 02:00 Legionella Antigen - Final Complete Urine Catheterized Urine PRESUMPTIVE NEGATIVE FOR LEGIONELLA P... 11/27/16 02:00 Streptococcus pneumoniae Antigen (M - Final Complete Urine Catheterized Urine PRESUMPTIVE NEGATIVE FOR STREPTOCOCCU... Laboratory Tests Test 11/28/16 05:08 Blood Gas Puncture Site LT BRACHIAL Blood Gas Patient Temperature 98.6 Blood Gas HCO3 21 mmol/L (22-26) Blood Gas Base Excess -3.6 mmol/L (-2-2) Blood Gas Oxygen Saturation 92 % (90-100) Arterial Blood pH 7.32 (7.380-7.420) Arterial Blood Partial 42 mmHg (38-42) Pressure CO2 Arterial Blood Partial 77 mmHg Pressure O2 (61-120) Arterial Blood Oxygen Content 21.6 Vol % (12.0-20.0) Arterial Blood 1.1 % (0-4) Carboxyhemoglobin Arterial Blood Methemoglobin 1.1 % (0-2) Blood Gas Hemoglobin 16.6 G/DL (12.0-16.0) Oxygen Delivery Device VENTILATOR Blood Gas Ventilator Setting SEE COMMENT Blood Gas Inspired Oxygen 40 % Imaging Last Impressions Chest X-Ray 11/26/16 7149 Signed Impressions: Service Date/Time: Saturday, November 26, 2016 23:10 - CONCLUSION: ET tube in good position. Jone Reyes MD Objective Remarks Narrative BP 153/99 Pulse 74 O2 saturation 94% General: The patient is a well-developed well-nourished overweight male, currently sedated, orally intubated on mechanical ventilation. Head and Neck exam: Head is normocephalic atraumatic. All tracheally intubated Eyes: Pupils are equal round and reactive to light. Nose: Midline septum with pink mucous membranes Mouth: Dentition unremarkable. Moist mucus membranes. ETT in place Neck: No palpable lymphadenopathy. No nuchal rigidity. No thyromegaly. Cardiovascular: S1-S2 regular no gallop or murmur. Telemetry normal sinus rhythm Lungs: Juliet tracheally intubated on mechanical ventilation, and entry decreased bilaterally at bases, scattered and rhonchi. Abdomen:Soft, without tenderness to palpation in all 4 quadrants of the abdomen. No guarding, rebound, or rigidity. Normal bowel sounds are audible. The patient has an umbilical hernia that is easily reducible. The patient has rectus diastases noted. Extremities: No clubbing or cyanosis. The patient has trace to 1+ pitting edema bilateral lower extremities. 2+ pulses in all 4 extremities. Neurologic Exam: GCS 3T. Currently sedated, orally intubated on mechanical ventilation. Reportedly was difficult to sedate and was moving all 4 extremities though not following commands following arrival in the ER. Pupils 3 mm bilaterally reactive Skin Exam: No rash noted. Intact skin that is warm and dry. A/P Assessment and Plan 56-year-old male with: Acute respiratory failure requiring mechanical ventilation Suspected COPD exacerbation Suspect obesity hypoventilation syndrome Possible severe sepsis based on criteria Positive troponin Morbid obesity HIV positive History of CHF History of hypertension Persistent leukocytosis Polysubstance abuse (THC, Cocaine) Plan: Neuro: Sedation with fentanyl and propofol infusions for ventilator synchrony Daily sedation vacation. CT brain 11/27-no acute abnormalities Cardiovascular: Watch for hypotension. Maintain MAP > 65mmHg Labetalol when necessary for hypertension as needed. Cycle cardiac enzymes. Borderline elevated troponin noted. ASA 81mg q day Pulmonary: Continue mechanical ventilation, vent bundle, bronchodilators, Solu-Medrol. ID: Follow-up sputum -NGTD Blood cultures- gram-positive cocci. Empiric antibiotic coverage with IV cefepime and Zithromax. F/U sputum culture HIV positive. On antiretroviral meds. Obtain CD4/CD8 count ID consulted appreciated recommendations Renal: Creatinine increasing 3.38 Nephrology consulted appreciate recommendations Obtain renal ultrasound Monitor BMP Heme: Follow CBC. Polycythemia noted probably secondary to chronic hypoxia. Endocrine: SSI for glycemic control as needed. GI: Start tube feeds with Glucerna 1.5 and advanced to goal as tolerated. Bowel regimen Prophylaxis: PPI/SCDs. SQ Heparin BID Condition critical. This patient remains critically ill with one or more organ systems which are or may become a threat to life. I have spent in excess of 38 minutes discontinuously in the care and management of this patient. This time is exclusive of procedures, and includes, but is not limited to, evaluation of the patient, review of the medical record, discussions with family, consultants, nursing staff, or respiratory therapy, and documentation in the medical record. Physician Zelda Becerra MD Nov 28, 2016 16:24
[2016-11-28 16:37] LABS: AUTOMATED NEUTROPHIL # 16.6 TH/MM3 (1.8-7.7); BASOPHIL % 0.2 % (0.0-2.0); EOSINOPHIL % 0.1 % (0.0-4.0); HEMATOCRIT 49.2 % (39.0-51.0); HEMO FLAGS DIFF FINAL; LYMPH % 2.4 % (9.0-44.0); LYMPHOCYTE # 0.4 TH/MM3 (1.0-4.8); MEAN CELL VOLUME 91.1 FL (80.0-100.0); MEAN CORPUSCULAR HEMOGLOBIN 29.9 PG (27.0-34.0); MEAN CORPUSCULAR HGB CONC 32.8 % (32.0-36.0); MONO % 6.9 % (0.0-8.0); NEUT % 90.4 % (16.0-70.0); PLATELET COUNT 157 TH/MM3 (150-450); WHITE BLOOD COUNT 18.3 TH/MM3 (4.0-11.0)
[2016-11-28 16:59] LABS: BICARBONATE 21.8 MEQ/L (21.0-32.0); POTASSIUM 4.9 MEQ/L (3.5-5.1)
[2016-11-28] MEDS ORDERED: MIDAZOLAM HCL 5 MG/ML VIAL (1 ML) ONE (17:17)
[2016-11-28] MEDS ORDERED: MIDAZOLAM HCL 5 MG/ML VIAL (1 ML) IV ONE (17:30)
--- NOTE | 2016-11-28 18:06 | RADRPT ---
EXAM DATE/TIME: 11/28/2016 17:26 [facility] COMPARISON: CHEST SINGLE AP, November 28, 2016, 3:41. INDICATIONS : Respiratory failure. MEDICAL HISTORY : Non-responsive. SURGICAL HISTORY : Non-responsive. ENCOUNTER: Subsequent ACUITY: 2 days PAIN SCORE: Non-responsive. LOCATION: Bilateral chest FINDINGS: A single AP portable semierect view of the chest was obtained. The endotracheal tube now has its tip approximately 3 cm above the halina. A nasogastric tube is again noted the tip in the stomach. There are no confluent infiltrates identified. The left costophrenic angle appears mildly blunted. The hear t size is at the upper limits of normal. There are multiple overlying electrocardiogram leads and oxy gen tubing. CONCLUSION: 1. The endotracheal tube tip now lies 3 cm above the halina. 2. Mild blunting of the left costophrenic angle most characteristic of a small effusion. Madhu Coffey MD on November 28, 2016 at 18:03 Board Certified Radiologist. This report was verified electronically.
[2016-11-28] MEDS: ASPIRIN 81 MG CHEW TAB CHEW SCH (18:15)
--- NOTE | 2016-11-28 19:40 | PD.CONS ---
HPI Service nephrology Consult Requested By Dr. Zelda Crawford Reason for Consult [facility] Primary Care Physician Shiraz Delvalle History of Present Illness History obtained from the chart. No baseline renal function is available. On 11/26, it was 2.03, it increased to 3.38 earlier this morning, most recent is 2.97. NS infusing at 84 ml/hour. The patient is positive 4 L (approximately since admission). 56-year-old male was brought to the ER with a history of progressive shortness of breath for about a day. EMS was called by patient's and on their arrival he was maintaining O2 sats in the 90s however was breathing in the 60s with altered mental status and diaphoresis. Reportedly earlier in the day he had hit his head pretty hard while reaching for his nebulizer and since then had altered mental status. Patient received Ativan and etomidate in the field and was intubated prior to arrival in the ER. He was placed on propofol/ fentanyl and subsequently on Versed gtt by ER physician due to agitation. Review of Systems ROS Limitations: Clinical Condition Past Family Social History Allergies: Coded Allergies: No Known Allergies (Unverified , 11/26/16) Past Medical History Obesity Hypertension HIV CHF COPD Reported Medications Zovirax 800 Mg Tab (Acyclovir) 800 Mg Tab 800 Mg PO 5 TIMES A DAY 7 Days Lidocaine Viscous (Lidocaine HCl) 2 % [place]iel[place] 2 % MT Q3-4HPRN 1 Days Reported Lisinopril 10 Mg Tab 10 Mg PO DAILY Norvasc (Amlodipine Besylate) 10 Mg Tab 10 Mg PO DAILY Proventil Conc Ud 0.5% (2.5 Mg/0.5 Ml) (Albuterol Sulfate) 2.5 Mg/0.5 Ml Inha 2.5 Mg INH other meds to be clarified Active Ordered Medications Current Medications Medications (Trade) Dose Ordered Sig/Kaleb Route Start Time Stop Time Status Last Admin Propofol 100 ml @ 0 mls/hr TITRATE IV 11/26/16 23:15 11/28/16 18:15 (fentaNYL DRIP) 250 ml @ 0 mls/hr TITRATE IV 11/27/16 00:00 11/27/16 22:40 (NS Flush) 2 ml UNSCH PRN IV FLUSH 11/27/16 01:00 (NS Flush) 2 ml BID IV FLUSH 11/27/16 09:00 11/28/16 08:07 (Tylenol) 650 mg Q6H PRN PO 11/27/16 01:00 (Peridex 0.12% Liq) 15 ml BID@08,20 MT 11/27/16 08:00 11/28/16 08:07 (Protonix Inj) 40 mg DAILY IV 11/27/16 09:00 11/28/16 08:07 Miscellaneous Information 1 [id number] XX 11/27/16 01:00 (Chlorhexidine 2% Cloth) 3 pack Taper DAILY@04 TOP 11/27/16 04:00 11/23/17 03:59 11/28/16 03:00 (Chlorhexidine 2% Cloth) 3 pack UNSCH PRN TOP 11/27/16 01:00 Insulin Aspart 1 1 Q6HR SQ 11/27/16 06:00 11/28/16 06:00 Cefepime HCl 2000 mg/Sodium Chloride 100 ml @ 200 mls/hr Q12H IV 11/27/16 02:00 11/28/16 16:33 Azithromycin 500 mg/Sodium Chloride 250 ml @ 250 mls/hr Q24H IV 11/27/16 02:00 11/28/16 02:59 (NS 1000 ml Inj) 1,000 ml @ 84 mls/hr [id number] IV 11/27/16 01:45 11/28/16 03:00 (Lipitor) 40 mg HS PO 11/27/16 21:00 11/27/16 21:06 (Neurontin) 300 mg HS PO 11/27/16 21:00 11/27/16 21:06 Patient Own Medication PT OWN MED: NON-FORMULARY D... DAILY PO 11/27/16 09:00 Hold (Epivir) 300 mg DAILY PO 11/27/16 09:00 11/28/16 08:06 (Ziagen) 600 mg DAILY PO 11/27/16 09:00 11/28/16 08:06 (SoluMEDROL INJ) 60 mg Q12H IV PUSH 11/27/16 20:00 11/28/16 08:07 (Peridex 0.12% Liq) 15 ml BID@08,20 MT 11/28/16 20:00 (Aspirin Chew) 81 mg DAILY CHEW 11/28/16 17:00 11/28/16 18:15 (Heparin Inj) 5,000 units Q12HR SQ 11/28/16 21:00 Physical Exam Vital Signs Vital Signs Date Time Temp Pulse Resp B/P Pulse Ox O2 Delivery O2 Flow Rate FiO2 11/28/16 18:36 100 80 11/28/16 18:00 87 6 153/94 100 11/28/16 18:00 87 11/28/16 17:00 75 15 153/95 92 11/28/16 17:00 75 11/28/16 16:53 80 7 155/83 94 11/28/16 16:37 74 13 159/97 91 11/28/16 16:25 75 20 179/105 91 11/28/16 16:10 92 40 11/28/16 16:00 98.7 77 19 168/101 92 11/28/16 16:00 40 11/28/16 16:00 77 11/28/16 15:49 76 18 159/102 92 11/28/16 15:00 77 19 156/105 92 11/28/16 15:00 77 11/28/16 14:00 77 19 151/92 91 11/28/16 14:00 77 11/28/16 13:00 74 11/28/16 13:00 74 23 153/99 93 11/28/16 12:28 93 40 11/28/16 12:00 40 11/28/16 12:00 74 11/28/16 12:00 98.2 74 16 142/80 93 11/28/16 11:00 75 16 142/84 93 11/28/16 11:00 75 11/28/16 10:00 74 16 134/91 93 11/28/16 10:00 74 11/28/16 09:00 77 16 142/84 94 11/28/16 09:00 77 11/28/16 08:02 94 40 11/28/16 08:00 40 11/28/16 08:00 98.5 79 19 143/83 94 11/28/16 08:00 79 11/28/16 06:00 79 11/28/16 04:19 93 40 11/28/16 04:00 40 11/28/16 04:00 98.9 79 20 145/87 92 11/28/16 04:00 79 11/28/16 02:00 81 11/28/16 01:40 94 40 11/28/16 00:00 40 11/28/16 00:00 98.7 82 17 146/88 93 11/28/16 00:00 82 11/27/16 22:00 84 11/27/16 20:00 84 11/27/16 20:00 99.2 84 17 145/85 96 11/27/16 20:00 40 11/27/16 19:43 95 40 Laboratory Laboratory Tests Test 11/28/16 11/28/16 11/28/16 04:38 05:08 16:14 White Blood Count 16.1 18.3 Red Blood Count 5.42 5.40 Hemoglobin 16.1 16.1 Hematocrit 49.4 49.2 Mean Corpuscular Volume 91.2 91.1 Mean Corpuscular Hemoglobin 29.7 29.9 Mean Corpuscular Hemoglobin 32.5 32.8 Concent Red Cell Distribution Width 15.8 16.0 Platelet Count 160 157 Mean Platelet Volume 9.6 9.0 Neutrophils (%) (Auto) 94.9 90.4 Lymphocytes (%) (Auto) 1.8 2.4 Monocytes (%) (Auto) 3.2 6.9 Eosinophils (%) (Auto) 0.0 0.1 Basophils (%) (Auto) 0.1 0.2 Neutrophils # (Auto) 15.3 16.6 Lymphocytes # (Auto) 0.3 0.4 Monocytes # (Auto) 0.5 1.3 Eosinophils # (Auto) 0.0 0.0 Basophils # (Auto) 0.0 0.0 CBC Comment DIFF FINAL DIFF FINAL Differential Comment Sodium Level 139 138 Potassium Level 4.7 4.9 Chloride Level 106 108 Carbon Dioxide Level 21.7 21.8 Anion Gap 11 8 Blood Urea Nitrogen 32 37 Creatinine 3.38 2.97 Estimat Glomerular Filtration 23 27 Rate Random Glucose 142 125 Calcium Level 8.0 7.9 Total Bilirubin 0.3 Aspartate Amino Transf 37 (AST/SGOT) Alanine Aminotransferase 21 (ALT/SGPT) Alkaline Phosphatase 56 Total Protein 7.2 Albumin 3.4 Blood Gas Puncture Site LT BRACHIAL Blood Gas Patient Temperature 98.6 Blood Gas HCO3 21 Blood Gas Base Excess -3.6 Blood Gas Oxygen Saturation 92 Arterial Blood pH 7.32 Arterial Blood Partial 42 Pressure CO2 Arterial Blood Partial 77 Pressure O2 Arterial Blood Oxygen Content 21.6 Arterial Blood 1.1 Carboxyhemoglobin Arterial Blood Methemoglobin 1.1 Blood Gas Hemoglobin 16.6 Oxygen Delivery Device VENTILATOR Blood Gas Ventilator Setting SEE COMMENT Blood Gas Inspired Oxygen 40 Date/Time Procedure Status Source Growth 11/27/16 02:00 Urine Culture - Preliminary Resulted Urine Clean Catch NO GROWTH IN 24 HOURS. 11/27/16 02:00 Legionella Antigen - Final Complete Urine Catheterized Urine PRESUMPTIVE NEGATIVE FOR LEGIONELLA P... 11/27/16 02:00 Streptococcus pneumoniae Antigen (M - Final Complete Urine Catheterized Urine PRESUMPTIVE NEGATIVE FOR STREPTOCOCCU... 11/26/16 23:35 Aerobic Blood Culture - Preliminary Resulted Blood Peripheral NO GROWTH IN 2 DAYS 11/26/16 23:35 Anaerobic Blood Culture - Preliminary Resulted Blood Peripheral NO GROWTH IN 2 DAYS Result Diagram: 11/28/16 1614 11/28/16 1614 Assessment and Plan Problem List: (1) Acute kidney injury Plan: could be due to renal hypoperfusion, sepsis induced ATN. Monitor urine output, continue IVF for the time being. Obtain urine electrolytes. Avoid nephrotoxic agents. No immediate need for dialysis. Maintain MAP above 65. Baseline renal function is not known, but patient's significant other reports that there has been no history of renal disease. Also apparently he has had multiple admissions to [facility]. (2) HIV (human immunodeficiency virus infection) Plan: On HAART. Medications were reviewed. ID has been consulted by reception specialist. (3) Respiratory failure Plan: obesity-hypoventilation syndrome, hypercapnia Also has history of COPD and CHF. Consider echocardiogram. Vent support. Assessment and Plan Thanks for the consult. Problem Qualifiers (1) Respiratory failure: Qualified Code: J96.00 - Acute respiratory failure, unspecified whether with hypoxia or hypercapnia Kun Cooper MD Nov 28, 2016 19:40
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
[2016-11-28] MEDS ORDERED: BUMETANIDE INJ 1 MG/4 ML VIAL IV PUSH ONE (20:15)
[2016-11-28] MEDS: fentaNYL DRIP 250 ML IV SCH (20:46)
[2016-11-28 21:46] LABS: BLOOD GAS BASE EXCESS -4.1 mmol/L (-2-2); BLOOD GAS CARBOXYHEMOGLOBIN 0.8 % (0-4); BLOOD GAS HCO3 23 mmol/L (22-26); BLOOD GAS METHEMOGLOBIN 1.3 % (0-2); BLOOD GAS O2 HGB SATURATION 97 % (90-100); BLOOD GAS OXYGEN CONTENT 23.5 Vol % (12.0-20.0); BLOOD GAS PCO2 59 mmHg (38-42); BLOOD GAS PO2 148 mmHg (61-120); BLOOD GAS TOTAL HGB 17.1 G/DL (12.0-16.0); TEMP CORR TO 98.6
[2016-11-28 21:48] LABS: CRITICAL VALUE YES; OXYGEN DEVICE VENTILATOR
[2016-11-28 21:49] LABS: DRAW SITE LT BRACHIAL; FIO2 80 %; NUMBER OF ARTERIAL PUNCTURES 1; STAT NO
[2016-11-28] MEDS: ATORVASTATIN 40 MG TAB PO SCH (22:23)
[2016-11-28] MEDS: GABAPENTIN 300 MG CAP PO SCH (22:23)
[2016-11-28] MEDS: HEPARIN SODIUM - SQ 10,000 UNITS/ML VIAL SQ SCH (22:24)
[2016-11-28] MEDS ORDERED: LABETALOL HCL 100 MG/20 ML VIAL IV PUSH PRN (23:45)
[2016-11-28] MEDS ORDERED: MIDAZOLAM HCL 2 MG/2 ML VIAL IV PUSH PRN (23:45)
[2016-11-29] VITALS (18 sets, daily range): BP systolic 97–105; BP diastolic 53–68; PULSE 60–108; RESP 10–17; TEMP 97.9–100; O2SAT 94–98
[2016-11-29] MEDS: CEFEPIME INJ 2,000 MG in SODIUM CHLORIDE 0.9% INJ 100 ML IV SCH ×2 (03:08→13:06)
[2016-11-29] MEDS: AZITHROMYCIN INJ 500 MG in SODIUM CHLOR 0.9% 250 ML INJ 250 ML IV SCH (03:10)
[2016-11-29 03:33] LABS: BLOOD GAS BASE EXCESS -2.9 mmol/L (-2-2); BLOOD GAS CARBOXYHEMOGLOBIN 0.9 % (0-4); BLOOD GAS HCO3 23 mmol/L (22-26); BLOOD GAS METHEMOGLOBIN 1.2 % (0-2); BLOOD GAS O2 HGB SATURATION 96 % (90-100); BLOOD GAS OXYGEN CONTENT 20.6 Vol % (12.0-20.0); BLOOD GAS PCO2 51 mmHg (38-42); BLOOD GAS PO2 126 mmHg (61-120); BLOOD GAS TOTAL HGB 15.1 G/DL (12.0-16.0); TEMP CORR TO 98.6
[2016-11-29 03:35] LABS: CRITICAL VALUE YES; OXYGEN DEVICE VENTILATOR
[2016-11-29 03:36] LABS: DRAW SITE RT RADIAL; FIO2 70 %; NUMBER OF ARTERIAL PUNCTURES 1; STAT NO; ULNAR PULSE PRESENT; VENT SETTINGS PRVC
[2016-11-29] MEDS: CHLORHEXIDINE GLUCONATE 2 % 1 PACK (2 CLOTHS) TOP SCH (04:00)
[2016-11-29] MEDS: RESP: ALBUTEROL 2.5 MG/IPRATROPIUM 0.5 MG NEB (SCH) NEB ×4 (04:37→19:40)
--- NOTE | 2016-11-29 04:37 | RADRPT ---
EXAM DATE/TIME: 11/29/2016 03:16 [facility] COMPARISON: CHEST SINGLE AP, November 28, 2016, 17:26. INDICATIONS : Respiratory distress MEDICAL HISTORY : None. SURGICAL HISTORY : None. ENCOUNTER: Subsequent ACUITY: 3 days PAIN SCORE: Non-responsive. LOCATION: Bilateral chest FINDINGS: A single view of the chest demonstrates the lungs to be symmetrically aerated with worsening bibasila r airspace disease/effusions. Heart size is prominent. Endotracheal and nasogastric tubes are unchang ed in position. Degenerative spurring of the dorsal spine. CONCLUSION: 1. Worsening bibasilar airspace disease/effusions. 2. Cardiomegaly. 3. Stable position of lines support tubes. George Flower MD on November 29, 2016 at 4:35 Board Certified Radiologist. This report was verified electronically.
[2016-11-29] MEDS: INSULIN ASPART SUPPLEMENTAL SCALE SQ SCH ×4 (06:00→17:23)
[2016-11-29] MEDS: SODIUM CHLOR 0.9% 1000 ML INJ 1,000 ML IV SCH ×2 (08:00→20:16)
[2016-11-29] MEDS: CHLORHEXIDINE 0.12% (ORAL KIT) 15 ML CUP MT SCH ×2 (08:19→20:00)
[2016-11-29] MEDS: ASPIRIN 81 MG CHEW TAB CHEW SCH (08:19)
[2016-11-29] MEDS: HEPARIN SODIUM - SQ 10,000 UNITS/ML VIAL SQ SCH ×2 (08:20→22:09)
[2016-11-29] MEDS: PANTOPRAZOLE SODIUM 40 MG VIAL IV SCH (08:20)
[2016-11-29] MEDS: ABACAVIR SULFATE 300 MG TAB PO SCH (08:20)
[2016-11-29] MEDS: methylPREDNISolone SOD SUCC 125 MG/2 ML VIAL IV PUSH SCH ×2 (08:21→22:09)
[2016-11-29] MEDS: SODIUM CHLORIDE 0.9% FLUSH 10 ML FLUSH IV FLUSH SCH ×2 (08:22→22:10)
[2016-11-29 11:30] LABS: AUTOMATED NEUTROPHIL # 11.9 TH/MM3 (1.8-7.7); BASOPHIL % 0.1 % (0.0-2.0); EOSINOPHIL % 0.1 % (0.0-4.0); HEMATOCRIT 45.9 % (39.0-51.0); HEMO FLAGS DIFF FINAL; LYMPH % 2.1 % (9.0-44.0); LYMPHOCYTE # 0.3 TH/MM3 (1.0-4.8); MEAN CELL VOLUME 92.1 FL (80.0-100.0); MEAN CORPUSCULAR HEMOGLOBIN 29.3 PG (27.0-34.0); MEAN CORPUSCULAR HGB CONC 31.8 % (32.0-36.0); MONO % 8.2 % (0.0-8.0); NEUT % 89.5 % (16.0-70.0); PLATELET COUNT 130 TH/MM3 (150-450); RED BLOOD COUNT 4.98 MIL/MM3 (4.50-5.90); RED CELL DISTRIBUTION WIDTH 15.8 % (11.6-17.2); WHITE BLOOD COUNT 13.3 TH/MM3 (4.0-11.0)
[2016-11-29 12:01] LABS: BICARBONATE 24.7 MEQ/L (21.0-32.0); CALCIUM-PROTEIN CORRECTED 7.5 MG/DL (8.5-10.1); MAGNESIUM 2.6 MG/DL (1.5-2.5); POTASSIUM 5.2 MEQ/L (3.5-5.1); TOTAL BILIRUBIN ADULT 0.4 MG/DL (0.2-1.0)
--- NOTE | 2016-11-29 12:49 | HHI.NPPN ---
Subjective Renal Failure: Acute Interval History He remains intubated, sedated. Good urine output. Creatinine is worse. Family is at bedside. (Yokasta Toth) Review of Systems General General Remarks unable to obtain (Yokasta Toth) Objective Data Data 11/28/16 11/29/16 18:59 06:59 Intake Total 1454 ml 2125 ml Output Total 450 ml 2050 ml Balance 1004 ml 75 ml IV Total 1394 ml 1825 ml Other 60 ml 300 ml Output Urine Total 450 ml 2050 ml Stool Total 0 ml 0 ml Vital Signs Date Time Temp Pulse Resp B/P Pulse Ox O2 Delivery O2 Flow Rate FiO2 11/29/16 10:00 70 11/29/16 08:43 97 70 11/29/16 08:00 70 11/29/16 08:00 98.1 75 14 103/60 97 11/29/16 08:00 75 11/29/16 06:00 84 11/29/16 04:00 99.9 92 10 98/61 96 11/29/16 04:00 92 11/29/16 04:00 70 11/29/16 02:00 104 11/29/16 00:25 97 70 11/29/16 00:00 108 11/29/16 00:00 100.0 108 17 97/53 98 11/29/16 00:00 70 11/28/16 22:00 107 11/28/16 20:00 80 11/28/16 20:00 100.2 88 19 188/107 99 11/28/16 20:00 88 11/28/16 18:36 100 80 11/28/16 18:00 87 6 153/94 100 11/28/16 18:00 87 11/28/16 17:00 75 15 153/95 92 11/28/16 17:00 75 11/28/16 16:53 80 7 155/83 94 11/28/16 16:37 74 13 159/97 91 11/28/16 16:25 75 20 179/105 91 11/28/16 16:10 92 40 11/28/16 16:00 98.7 77 19 168/101 92 11/28/16 16:00 40 11/28/16 16:00 77 11/28/16 15:49 76 18 159/102 92 11/28/16 15:00 77 19 156/105 92 11/28/16 15:00 77 11/28/16 14:00 77 19 151/92 91 11/28/16 14:00 77 11/28/16 13:00 74 11/28/16 13:00 74 23 153/99 93 (Yokasta Toth) -: 11/29/16 1038 11/29/16 1038 Imaging Last 72 hours Impressions Chest X-Ray 11/29/16 0600 Signed Impressions: Service Date/Time: Tuesday, November 29, 2016 03:16 - CONCLUSION: 1. Worsening bibasilar airspace disease/effusions. 2. Cardiomegaly. 3. Stable position of lines support tubes. George Flower MD Chest X-Ray 11/28/16 0600 Signed Impressions: Service Date/Time: November 03:41 - CONCLUSION: ET tube tip is close to the halina and needs to be withdrawn approximately 1 cm. Jone Reyes MD Renal Ultrasound 11/28/16 0000 Signed Impressions: Service Date/Time: November 19:08 - CONCLUSION: Normal examination for a patient of this age. Edenilson Mejia MD Chest X-Ray 11/28/16 0000 Signed Impressions: Service Date/Time: November 17:26 - CONCLUSION: 1. The endotracheal tube tip now lies 3 cm above the halina. 2. Mild blunting of the left costophrenic angle most characteristic of a small effusion. Madhu Coffey MD Head CT 11/27/16 0026 Signed Impressions: Service Date/Time: Sunday, November 27, 2016 02:21 - CONCLUSION: No acute findings in the brain. Jone Reyes MD Chest X-Ray 11/26/16 2312 Signed Impressions: Service Date/Time: Saturday, November 26, 2016 23:10 - CONCLUSION: ET tube in good position. Jone Reyes MD Tubes & Lines: Cardoza Tubes & Lines Comment ETT, OG tube Drip Comment propofol, fentanyl (Yokasta Toth) Physical Exam General Appearance: Well Developed, Well Nourished, No Acute Distress Appearance Remarks intubated, sedated (Yokasta Toth B. [employer]GER) Eyes Eye Exam: Pupils Equal (Yokasta Toth B. [employer]GRAM MA[employer]GER) Neck Neck Exam: Trachea Midline (Yokasta Toth B. [employer]GRAM MA[employer]GER) Pulmonary Resp Exam: Breath Sounds Equal, No Distress, Crackles, Rhonchi Resp Remarks vented lung sounds (Hawk Tothon B. [employer] PROGRAM MANAGER) Cardiology CV Exam: Regular, Normal Sinus Rhythm (Yokasta Toth B. [employer] PROGRAM MA[employer]GER) Gastrointestinal/Abdomen GI Exam: Soft, Non-Tender (Yokasta Toth B. [employer]GRAM MANAGER) Musculoskeletal MS Exam: Joints Intact, Normal Tone (Yokasta Toth B. [employer]GRAM MA[employer]GER) Integumentary Skin Exam: Warm, Dry (Yokasta Toth. [employer]NAGER) Extremeties Extremities Exam: No Edema, Pedal Pulses Palpable (Yokasta Toth B. [employer]GRAM MANAGER) Neurologic Neuro Exam: Unresponsive, Sedated (Yokasta Toth B. [employer]GRAM MANAGER) Assessment/Plan Discussed Condition With: Relative Assessment Summary: DIONY/Acute Renal Failure Electrolyte Assessment: Metabolic Acidosis Problem List: (1) Acute kidney injury Plan: No baseline labs for comparison. Renal failure may be due to renal hypoperfusion and sepsis induced ATN. FeNa is low, < 1%, consistent with above His creatinine is worse but he has made excellent urine At this time continue current plan. Continue IVF for the time being. K 5.2, monitor for now should he decline he may require dialysis but it is not imminent at this time Avoid nephrotoxic agents. Start Phoslo with tube feeding Maintain MAP above 65. Use pressors if needed (2) HIV (human immunodeficiency virus infection) Plan: On HAART. ID has been consulted (3) Respiratory failure Plan: ABG reviewed, has respiratory acidosis He has a history of COPD and CHF. Continue vent support. Current settings A/C 14/600/70/5 he is on cefepime and Zithromax (Yokasta Toth B. [employer]GRAM MANAGER) Plan patient was seen and examined. Non oliguric, creatinine is worse. Continue supportive care. Avoid nephrotoxic agents. Diuresis as indicated. No immediate indication for dialysis. (Kun Cooper MD) Problem Qualifiers (1) Respiratory failure: Qualified Code: J96.00 - Acute respiratory failure, unspecified whether with hypoxia or hypercapnia Yokasta Toth Nov 29, 2016 12:49 Kun Cooper MD Nov 29, 2016 21:05
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
[2016-11-29] MEDS: fentaNYL DRIP 250 ML IV SCH (15:32)
--- NOTE | 2016-11-29 15:51 | HHI.CCPN ---
Subjective Remarks/Hospital Course 56-year-old male was brought to the ER with a history of progressive shortness of breath for about a day. EMS was called by patient's and on their arrival he was maintaining O2 sats in the 90s however was breathing in the 60s with altered mental status and diaphoresis. Reportedly earlier in the day he had hit his head pretty hard while reaching for his nebulizer and since then had altered mental status. Patient received Ativan and etomidate in the field and was intubated prior to arrival in the ER. He was placed on propofol/ fentanyl and subsequently on Versed gtt by ER physician due to agitation. Subjective: 11/28: Afebrile. Patient was noted to be oliguric last evening, 500 cc bolus normal saline was provided, with no change in urine output. Creatinine noted to be increasing, Nephrology consulted. Renal ultrasound pending. The patient was noted to have gram-positive cocci bacteremia, currently on azithromycin and cefepime. Leukocytosis worsening, ID consulted 11/29: Tmax 101.0 Patient was noted to have ventilator dyssynchrony throughout the night, medications adjusted accordingly. ABG pending. Creatinine increased, nephrology following. PhosLo added to medication regimen. Leukocytosis resolving.ID following. Patient still nonresponsive on sedation vacation, repeat CT brain pending Objective Vital Signs Date Time Temp Pulse Resp B/P Pulse Ox O2 Delivery O2 Flow Rate FiO2 11/29/16 14:00 63 11/29/16 12:00 98.5 14 104/65 98 11/29/16 12:00 70 11/27/16 01:15 Ventilator Intake and Output 11/28/16 11/28/16 11/29/16 08:00 16:00 00:00 Intake Total 1272 ml 1454 ml 1096 ml Output Total 375 ml 450 ml 200 ml Balance 897 ml 1004 ml 896 ml Result Diagram: 11/29/16 1038 11/29/16 1038 Other Results Microbiology Date/Time Procedure Status Source Growth 11/27/16 02:00 Legionella Antigen - Final Complete Urine Catheterized Urine PRESUMPTIVE NEGATIVE FOR LEGIONELLA P... 11/27/16 02:00 Streptococcus pneumoniae Antigen (M - Final Complete Urine Catheterized Urine PRESUMPTIVE NEGATIVE FOR STREPTOCOCCU... 11/27/16 02:00 Urine Culture - Final Complete Urine Clean Catch NO GROWTH IN 48 HOURS. Laboratory Tests Test 11/28/16 11/29/16 20:45 02:55 Blood Gas Puncture Site LT BRACHIAL RT RADIAL Blood Gas Patient Temperature 98.6 98.6 Blood Gas HCO3 23 mmol/L 23 mmol/L (22-26) (22-26) Blood Gas Base Excess -4.1 mmol/L -2.9 mmol/L (-2-2) (-2-2) Blood Gas Oxygen Saturation 97 % (90-100) 96 % (90-100) Arterial Blood pH 7.21 7.28 (7.380-7.420) (7.380-7.420) Arterial Blood Partial 59 mmHg (38-42) 51 mmHg (38-42) Pressure CO2 Arterial Blood Partial 148 mmHg 126 mmHg Pressure O2 (61-120) (61-120) Arterial Blood Oxygen Content 23.5 Vol % 20.6 Vol % (12.0-20.0) (12.0-20.0) Arterial Blood 0.8 % (0-4) 0.9 % (0-4) Carboxyhemoglobin Arterial Blood Methemoglobin 1.3 % (0-2) 1.2 % (0-2) Blood Gas Hemoglobin 17.1 G/DL 15.1 G/DL (12.0-16.0) (12.0-16.0) Oxygen Delivery Device VENTILATOR VENTILATOR Blood Gas Ventilator Setting SEE COMMENT [facility] Blood Gas Inspired Oxygen 80 % 70 % Imaging Last Impressions Chest X-Ray 11/26/16 2272 Signed Impressions: Service Date/Time: Saturday, November 26, 2016 23:10 - CONCLUSION: ET tube in good position. Jone Reyes MD Objective Remarks Narrative General: The patient is a well-developed well-nourished overweight male, orally intubated on mechanical ventilation. Head and Neck exam: Head is normocephalic atraumatic. All tracheally intubated Eyes: Pupils are equal round and reactive to light. Nose: Midline septum with pink mucous membranes Mouth: Dentition unremarkable. Moist mucous membranes. ETT insitu Neck: No palpable lymphadenopathy. No nuchal rigidity. No thyromegaly. Cardiovascular: S1-S2 regular no gallop or murmur. Telemetry normal sinus rhythm Lungs: Orotracheally intubated on mechanical ventilation, and entry decreased bilaterally at bases, scattered and rhonchi. Abdomen:Soft, without tenderness to palpation in all 4 quadrants of the abdomen. No guarding, rebound, or rigidity. Normal bowel sounds are audible. The patient has an umbilical hernia that is easily reducible. The patient has rectus diastases noted. Extremities: No clubbing or cyanosis. The patient has trace to 1+ pitting edema bilateral lower extremities. 2+ pulses in all 4 extremities. Neurologic Exam: GCS 3T. Currently sedated, orally intubated on mechanical ventilation. Reportedly was difficult to sedate and was moving all 4 extremities though not following commands following arrival in the ER. Pupils 3 mm bilaterally reactive Skin Exam: No rash noted. Intact skin that is warm and dry. A/P Assessment and Plan 56-year-old male with: Acute respiratory failure requiring mechanical ventilation Suspected COPD exacerbation Suspect obesity hypoventilation syndrome Possible severe sepsis based on criteria Positive troponin Morbid obesity HIV positive History of CHF History of hypertension Persistent leukocytosis Acute kidney injury Hyperkalemia Polysubstance Abuse Plan: Neuro: Sedation with fentanyl and propofol infusions for ventilator synchrony Daily sedation vacation. CT brain 11/27-no acute abnormalities Cardiovascular: Watch for hypotension. Maintain MAP > 65mmHg Labetalol when necessary for hypertension as needed. Cycle cardiac enzymes. Borderline elevated troponin noted. ASA 81mg q day Pulmonary: Continue mechanical ventilation, vent bundle, bronchodilators, Solu-Medrol. ID: Follow-up sputum -NGTD Blood cultures- gram-positive cocci. Empiric antibiotic coverage with IV cefepime and Zithromax. F/U sputum culture HIV positive. On antiretroviral meds. Obtain CD4/CD8 count ID following Dr. Perez recommendations Renal: Creatinine 3.8 UOP 3175cc in last 24 hours Nephrology following 11/28 Renal ultrasound- normal, no hydronephrosis Monitor BMP Heme: Follow CBC. Polycythemia noted probably secondary to chronic hypoxia. Endocrine: SSI for glycemic control as needed. GI: Glucerna 1.5 30cc/hr Bowel regimen Prophylaxis: PPI/SCDs. SQ Heparin BID Condition critical. This patient remains critically ill with one or more organ systems which are or may become a threat to life. I have spent in excess of 30 minutes discontinuously in the care and management of this patient. This time is exclusive of procedures, and includes, but is not limited to, evaluation of the patient, review of the medical record, discussions with family, consultants, nursing staff, or respiratory therapy, and documentation in the medical record. Physician Zelda Becerar MD Nov 29, 2016 15:51
[2016-11-29] MEDS ORDERED: CALCIUM GLUCONATE INJ 2 GM in SODIUM CHLORIDE 0.9% INJ 100 ML IV ONE (16:00)
[2016-11-29 17:28] LABS: BLOOD GAS BASE EXCESS -3.1 mmol/L (-2-2); BLOOD GAS CARBOXYHEMOGLOBIN 1.1 % (0-4); BLOOD GAS HCO3 23 mmol/L (22-26); BLOOD GAS METHEMOGLOBIN 1.1 % (0-2); BLOOD GAS O2 HGB SATURATION 95 % (90-100); BLOOD GAS OXYGEN CONTENT 19.6 Vol % (12.0-20.0); BLOOD GAS PCO2 51 mmHg (38-42); BLOOD GAS PO2 95 mmHg (61-120); BLOOD GAS TOTAL HGB 14.7 G/DL (12.0-16.0); CRITICAL VALUE YES; OXYGEN DEVICE VENTILATOR; TEMP CORR TO 98.6
[2016-11-29 17:29] LABS: DRAW SITE LT RADIAL; FIO2 65 %; NUMBER OF ARTERIAL PUNCTURES 1; STAT NO; ULNAR PULSE PRESENT
[2016-11-29] MEDS ORDERED: Custom Consult Pharmacy 1 EA OTHER SCH (19:00)
--- NOTE | 2016-11-29 21:41 | RADRPT ---
EXAM DATE/TIME: 11/29/2016 21:12 [facility] COMPARISON: No previous studies available for comparison. INDICATIONS : Altered mental status. RADIATION DOSE: 53.08 CTDIvol (mGy) ; Patient positioning; Tabletop CT Head MEDICAL HISTORY : Non-responsive. SURGICAL HISTORY : Non-responsive. ENCOUNTER: Subsequent ACUITY: 2 weeks PAIN SCALE: Non-responsive LOCATION: cranial TECHNIQUE: Multiple contiguous axial images were obtained of the head. Using automated exposure control and adj ustment of the mA and/or kV according to patient size, radiation dose was kept as low as reasonably a chievable to obtain optimal diagnostic quality images. DICOM format image data is available electro nically for review and comparison. FINDINGS: CEREBRUM: A large, subacute right middle cerebral artery distribution infarct is now apparent, evident as a lar ge area of cerebral edema and loss of calle/white matter differentiation. There is approximately 13 mm of leftward midline shift. No bleed. No mass lesion demonstrated. POSTERIOR FOSSA: The cerebellum and brainstem are intact. The 4th ventricle is midline. The cerebellopontine angle i s unremarkable. EXTRACRANIAL: The visualized portion of the orbits is intact. SKULL: The calvaria is intact. No evidence of skull fracture. 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 Jeison Coles MD on November 29, 2016 at 21:38 Board Certified Radiologist. This report was verified electronically.
[2016-11-29] MEDS: ATORVASTATIN 40 MG TAB PO SCH (22:10)
[2016-11-29] MEDS: LINEZOLID 600 MG TAB PO SCH (22:10)
[2016-11-29] MEDS: GABAPENTIN 300 MG CAP PO SCH (22:10)
[2016-11-29] MEDS: SULFAMETHOX/TRIMETHOPRIM INJ 320 MG in DEXTROSE 5% IN WATE 500 ML INJ 500 ML IV SCH ×2 (22:10)
[2016-11-30] VITALS (17 sets, daily range): BP systolic 89–108; BP diastolic 64–70; PULSE 60–72; RESP 16; TEMP 97.9–98.6; O2SAT 91–94
[2016-11-30] MEDS: CEFEPIME INJ 2,000 MG in SODIUM CHLORIDE 0.9% INJ 100 ML IV SCH ×2 (01:09→14:25)
[2016-11-30] MEDS: AZITHROMYCIN INJ 500 MG in SODIUM CHLOR 0.9% 250 ML INJ 250 ML IV SCH (01:09)
[2016-11-30] MEDS: CHLORHEXIDINE GLUCONATE 2 % 1 PACK (2 CLOTHS) TOP SCH ×2 (04:00→22:13)
[2016-11-30] MEDS: RESP: ALBUTEROL 2.5 MG/IPRATROPIUM 0.5 MG NEB (SCH) NEB ×4 (04:02→20:29)
--- NOTE | 2016-11-30 04:34 | RADRPT ---
EXAM DATE/TIME: 11/30/2016 03:32 [facility] COMPARISON: CHEST SINGLE AP, November 29, 2016, 3:16. INDICATIONS : Shortness of breath, possible pulmonary disease. MEDICAL HISTORY : None. SURGICAL HISTORY : None. ENCOUNTER: Subsequent ACUITY: 4 - 6 days PAIN SCORE: Non-responsive. LOCATION: Bilateral chest FINDINGS: A single view of the chest demonstrates endotracheal tube in satisfactory position. NG coiled in stom ach. Bilateral mostly basilar airspace disease with small effusions. Cardiomegaly. No pneumothorax. CONCLUSION: 1. Basilar airspace disease with small effusions. No significant change since November 29. Support appa ratus unchanged. Edenilson Mejia MD on November 30, 2016 at 4:32 Board Certified Radiologist. This report was verified electronically.
[2016-11-30] MEDS: SULFAMETHOX/TRIMETHOPRIM INJ 320 MG in DEXTROSE 5% IN WATE 500 ML INJ 500 ML IV SCH ×6 (05:37→20:46)
[2016-11-30] MEDS: INSULIN ASPART SUPPLEMENTAL SCALE SQ SCH ×4 (05:41→18:00)
[2016-11-30 07:09] LABS: HEMATOCRIT 46.5 % (39.0-51.0); MEAN CELL VOLUME 94.1 FL (80.0-100.0); MEAN CORPUSCULAR HEMOGLOBIN 29.6 PG (27.0-34.0); MEAN CORPUSCULAR HGB CONC 31.5 % (32.0-36.0); PLATELET COUNT 108 TH/MM3 (150-450); RED BLOOD COUNT 4.94 MIL/MM3 (4.50-5.90); RED CELL DISTRIBUTION WIDTH 16.3 % (11.6-17.2); REVIEW FLAG FINAL; WHITE BLOOD COUNT 14.8 TH/MM3 (4.0-11.0)
[2016-11-30 07:18] LABS: BICARBONATE 21.9 MEQ/L (21.0-32.0); MAGNESIUM 3.1 MG/DL (1.5-2.5); POTASSIUM 4.8 MEQ/L (3.5-5.1)
[2016-11-30] MEDS: CHLORHEXIDINE 0.12% (ORAL KIT) 15 ML CUP MT SCH ×2 (08:00→20:00)
[2016-11-30] MEDS: NON-FORMULARY DRUG (Darunavir-Cobicistat (Prezcobix) 1 TAB) PO SCH (09:00)
[2016-11-30] MEDS: SODIUM CHLORIDE 0.9% FLUSH 10 ML FLUSH IV FLUSH SCH ×2 (09:00→20:40)
[2016-11-30] MEDS: methylPREDNISolone SOD SUCC 125 MG/2 ML VIAL IV PUSH SCH ×2 (09:18→20:46)
[2016-11-30] MEDS: ABACAVIR SULFATE 300 MG TAB PO SCH (09:19)
[2016-11-30] MEDS: ASPIRIN 81 MG CHEW TAB CHEW SCH (09:20)
[2016-11-30] MEDS: HEPARIN SODIUM - SQ 10,000 UNITS/ML VIAL SQ SCH ×2 (09:20→20:46)
[2016-11-30] MEDS: PANTOPRAZOLE SODIUM 40 MG VIAL IV SCH (09:20)
[2016-11-30] MEDS: LINEZOLID 600 MG TAB PO SCH ×2 (09:20→20:46)
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
[2016-11-30] MEDS ORDERED: MANNITOL INJ 50 ML ONE (10:41)
--- NOTE | 2016-11-30 12:04 | HHI.CCPN ---
Subjective Remarks/Hospital Course 56-year-old male was brought to the ER with a history of progressive shortness of breath for about a day. EMS was called by patient's and on their arrival he was maintaining O2 sats in the 90s however was breathing in the 60s with altered mental status and diaphoresis. Reportedly earlier in the day he had hit his head pretty hard while reaching for his nebulizer and since then had altered mental status. Patient received Ativan and etomidate in the field and was intubated prior to arrival in the ER. He was placed on propofol/ fentanyl and subsequently on Versed gtt by ER physician due to agitation. Subjective: 11/28: Afebrile. Patient was noted to be oliguric last evening, 500 cc bolus normal saline was provided, with no change in urine output. Creatinine noted to be increasing, Nephrology consulted. Renal ultrasound pending. The patient was noted to have gram-positive cocci bacteremia, currently on azithromycin and cefepime. Leukocytosis worsening, ID consulted 11/29: Tmax 101.0 Patient was noted to have ventilator dyssynchrony with over breathing throughout the night, medications/ventilator adjusted accordingly. ABG pending. Creatinine increased, nephrology following. PhosLo added to medication regimen. Leukocytosis resolving.ID following. Patient still nonresponsive on sedation vacation, repeat CT brain pending 11/30:CT of the brain performed last night, revealed large subacute right MCA infarct with a 13 mm midline shift. Neurology and Neurosurgery was consulted. Discussed with Dr. Hardin, CT results and mannitol 25 g was given, the patient continues to be hyperventilated head of bed elevated. Called ([facility]) and spoke with him provided information for evaluation for possible intervention. EEG pending. Currently the patient is not responsive to deep pain, sedation off for approximately 20 hours. Objective Vital Signs Date Time Temp Pulse Resp B/P Pulse Ox O2 Delivery O2 Flow Rate FiO2 11/30/16 08:00 65 11/30/16 08:00 61 11/30/16 08:00 97.9 16 108/64 93 11/27/16 01:15 Ventilator Intake and Output 11/29/16 11/29/16 11/30/16 08:00 16:00 00:00 Intake Total 1029 ml 813 ml 1011 ml Output Total 1850 ml 1400 ml 1000 ml Balance -821 ml -587 ml 11 ml Result Diagram: 11/30/16 0620 11/30/16 0620 Other Results Laboratory Tests Test 11/29/16 17:23 Blood Gas Puncture Site LT RADIAL Blood Gas Patient Temperature 98.6 Blood Gas HCO3 23 mmol/L (22-26) Blood Gas Base Excess -3.1 mmol/L (-2-2) Blood Gas Oxygen Saturation 95 % (90-100) Arterial Blood pH 7.27 (7.380-7.420) Arterial Blood Partial 51 mmHg (38-42) Pressure CO2 Arterial Blood Partial 95 mmHg Pressure O2 (61-120) Arterial Blood Oxygen Content 19.6 Vol % (12.0-20.0) Arterial Blood 1.1 % (0-4) Carboxyhemoglobin Arterial Blood Methemoglobin 1.1 % (0-2) Blood Gas Hemoglobin 14.7 G/DL (12.0-16.0) Oxygen Delivery Device VENTILATOR Blood Gas Ventilator Setting Blood Gas Inspired Oxygen 65 % Imaging Last Impressions Chest X-Ray 11/26/16 6202 Signed Impressions: Service Date/Time: Saturday, November 26, 2016 23:10 - CONCLUSION: ET tube in good position. Jone Reyes MD Objective Remarks Narrative General: The patient is a well-developed well-nourished overweight male unresponsive forms of sedation Head and Neck exam: Head is normocephalic atraumatic. All tracheally intubated Eyes: Pupils are equal round and reactive to light. Nose: Midline septum with pink mucous membranes Mouth: Dentition unremarkable. Moist mucous membranes. ETT insitu Neck: No palpable lymphadenopathy. No nuchal rigidity. No thyromegaly. Cardiovascular: S1-S2 regular no gallop or murmur. Telemetry normal sinus rhythm Lungs: Orotracheally intubated on mechanical ventilation, and entry decreased bilaterally at bases, scattered and rhonchi. Abdomen:Soft, without tenderness to palpation in all 4 quadrants of the abdomen. No guarding, rebound, or rigidity. Normal bowel sounds are audible. The patient has an umbilical hernia that is easily reducible. The patient has rectus diastases noted. Extremities: No clubbing or cyanosis. The patient has trace to 1+ pitting edema bilateral lower extremities. 2+ pulses in all 4 extremities. Neurologic Exam: GCS 3T. Off all forms of sedation. No movement to deep painful stimuli Skin Exam: No rash noted. Intact skin that is warm and dry. A/P Assessment and Plan 56-year-old male with: Acute respiratory failure requiring mechanical ventilation Suspected COPD exacerbation Suspect obesity hypoventilation syndrome Possible severe sepsis based on criteria Positive troponin Morbid obesity HIV positive History of CHF History of hypertension Persistent leukocytosis Polycythemia Polysubstance abuse (THC, Cocaine) Large right MCA infarct with midline shift Plan: Neuro: Sedation(Propofol and Fentanyl) off since 11/[address] brain 11/27-no acute abnormalities Repeat CT brain 11/29-large subacute right MCA infarct with 13 mm left midline shift Neurology consulted-spoke with Dr. Hardin-patient received 25 g of mannitol, currently hyperventilation, head of bed elevation Neurosurgery consulted-spoke with Dr. White-await recommendations for possible surgical intervention Cardiovascular: Watch for hypotension. Maintain MAP > 65mmHg Labetalol when necessary for hypertension as needed. Cycle cardiac enzymes. Borderline elevated troponin noted. ASA 81mg q day Pulmonary: Continue mechanical ventilation, vent bundle, bronchodilators, Solu-Medrol. Maintain hyperventilation to PaCO2 of 3035 mmHg ID: Follow-up sputum -NGTD Blood cultures- gram-positive cocci. Empiric antibiotic coverage with IV cefepime and Zithromax. F/U sputum culture HIV positive. On antiretroviral meds. F/U CD4/CD8 count ID following Renal: Nephrology following- Dr. Cooper 11/28 renal ultrasound- WNL Monitor BMP Heme: Follow CBC. Polycythemia noted probably secondary to chronic hypoxia. Endocrine: SSI for glycemic control as needed. GI: Start tube feeds with Glucerna 1.5 and advanced to goal as tolerated. Bowel regimen Prophylaxis: PPI/SCDs. SQ Heparin BID Dispo: Prognosis is guarded at this time, for any type of meaningful recovery. I do not think the patient will survive this hospitalization . Possible brain herniation. Large right MCA infarct with significant midline shift. EEG pending. Called at 1030am, discussion with Dr. Hardin and Dr. White this am.. Will await neurosurgical recommendations. Palliative care has been consulted to define goals of care. Condition critical. This patient remains critically ill with one or more organ systems which are or may become a threat to life. I have spent in excess of 47 minutes discontinuously in the care and management of this patient. This time is exclusive of procedures, and includes, but is not limited to, evaluation of the patient, review of the medical record, discussions with family, consultants, nursing staff, or respiratory therapy, and documentation in the medical record. Physician Zelda Becerra MD Nov 30, 2016 12:04
--- NOTE | 2016-11-30 12:08 | HHI.NPPN ---
Subjective Renal Failure: Acute Additional Remarks Patient remains intubated, no apparent distress Review of Systems General General Remarks unable to obtain Objective Data Data 11/29/16 11/30/16 19:00 07:00 Intake Total 813 ml 2582 ml Output Total 1400 ml 2450 ml Balance -587 ml 132 ml Intake Oral 0 ml IV Total 580 ml 1798 ml Tube Feeding 233 ml 584 ml Other 200 ml Output Urine Total 1400 ml 2450 ml # Bowel Movements 0 Vital Signs Date Time Temp Pulse Resp B/P Pulse Ox O2 Delivery O2 Flow Rate FiO2 11/30/16 11:39 94 65 11/30/16 08:00 65 11/30/16 08:00 61 11/30/16 08:00 97.9 61 16 108/64 93 11/30/16 07:58 91 65 11/30/16 06:00 71 11/30/16 04:18 93 65 11/30/16 04:00 98.2 60 16 105/69 92 11/30/16 04:00 65 11/30/16 04:00 60 11/30/16 02:00 65 11/30/16 00:00 98.6 60 16 106/66 93 11/30/16 00:00 65 11/30/16 00:00 63 11/29/16 23:25 94 65 11/29/16 22:00 60 11/29/16 20:00 61 11/29/16 20:00 65 11/29/16 20:00 97.9 61 16 103/68 97 11/29/16 19:41 96 65 11/29/16 18:00 62 11/29/16 17:34 97 65 11/29/16 16:00 70 11/29/16 16:00 62 11/29/16 16:00 98.4 62 14 105/65 96 11/29/16 15:29 97 65 11/29/16 14:00 63 -: 11/30/16 0620 11/30/16 0620 Tubes & Lines: Cardoza Tubes & Lines Comment ETT, OG tube Drip Comment propofol, fentanyl Physical Exam General Appearance: Well Developed, Well Nourished, No Acute Distress Eyes Eye Exam: Pupils Equal Neck Neck Exam: Trachea Midline Pulmonary Resp Exam: Breath Sounds Equal, No Distress, Rhonchi Cardiology CV Exam: Regular, Normal Sinus Rhythm Gastrointestinal/Abdomen GI Exam: Soft, Non-Tender Musculoskeletal MS Exam: Joints Intact, Normal Tone Integumentary Skin Exam: Warm, Dry Extremeties Extremities Exam: No Edema, Pedal Pulses Palpable Neurologic Neuro Exam: Unresponsive, Sedated Assessment/Plan Discussed Condition With: Relative Assessment Summary: DIONY/Acute Renal Failure Electrolyte Assessment: Metabolic Acidosis Problem List: (1) Acute kidney injury Plan: No baseline labs for comparison. Renal failure may be due to renal hypoperfusion and sepsis induced ATN. Positive cocaine. FeNa is low, < 1%, consistent with above UOP, creatinine improved today. No need for dialysis - renal function improving. Continue NS at 60cc/hour. If renal function continues to improve, may consider to decrease IVFs tomorrow. Avoid nephrotoxic agents. On Phoslo with tube feeding Maintain MAP above 65. (2) HIV (human immunodeficiency virus infection) Plan: On HAART. ID has been consulted (3) Respiratory failure Plan: Continue vent support. Wean as tolerated Follow with ID - on cefepime, bactrim, and zyvox, Problem Qualifiers (1) Respiratory failure: Qualified Code: J96.00 - Acute respiratory failure, unspecified whether with hypoxia or hypercapnia Praveen Sky MD Nov 30, 2016 12:08
[2016-11-30 12:27] LABS: BLOOD GAS BASE EXCESS -4.2 mmol/L (-2-2); BLOOD GAS CARBOXYHEMOGLOBIN 1.2 % (0-4); BLOOD GAS HCO3 22 mmol/L (22-26); BLOOD GAS METHEMOGLOBIN 1.2 % (0-2); BLOOD GAS O2 HGB SATURATION 92 % (90-100); BLOOD GAS PCO2 49 mmHg (38-42); BLOOD GAS PO2 80 mmHg (61-120); BLOOD GAS TOTAL HGB 15.3 G/DL (12.0-16.0); TEMP CORR TO 98.6
[2016-11-30 12:28] LABS: CRITICAL VALUE YES; DRAW SITE RT RADIAL; FIO2 65 %; NUMBER OF ARTERIAL PUNCTURES 1; OXYGEN DEVICE VENTILATOR; VENT SETTINGS PRVC/AC 600/20
[2016-11-30 12:29] LABS: STAT NO; ULNAR PULSE PRESENT
[2016-11-30] MEDS: SODIUM CHLOR 0.9% 1000 ML INJ 1,000 ML IV SCH (12:52)
--- NOTE | 2016-11-30 13:14 | MB ---
cc: KEYUR CRAWFORD MD, ROHIT K. M.D. DATE OF CONSULTATION: 11/30/2016. REASON FOR CONSULTATION: Right hemisphere stroke. HISTORY OF PRESENT ILLNESS: 56-year-old -[place] obese gentleman who was admitted on 11/26/2016. He presented to the emergency room with respiratory failure requiring intubation. He has been intubated and sedated since his admission. Initial CT scan of the head did not reveal any acute findings. He has a very complicated history including HIV, congestive heart failure, obesity, hypertension, COPD and also presented with elevated troponins and CPKs with hypoxia and acidosis and hypercapnia. He also developed renal failure, although is making urine, and is followed by nephrology also. Last evening despite holding sedation for a prolonged period time, he was found to be unresponsive and CT scan was obtained day which reveals a large right hemisphere stroke with about 13 mm [id number] midline shift. He remained unresponsive this morning and subsequently neurology and neurosurgery consultations are requested. PAST MEDICAL HISTORY: 1. HIV. 2. Congestive heart failure. 3. COPD. 4. Polysubstance abuse. On admission positive for cocaine and THC. 5. Morbid obesity. 6. Respiratory failure with his COPD exacerbation. 7. Sepsis. 8. Hypertension. 9. Polysubstance abuse. CURRENT MEDICATIONS: 1. Trimethoprim. 2. Sulfamethoxazole. 3. Zyvox. 4. Subcutaneous heparin. 5. Aspirin. 6. Lipitor. 7. Gabapentin. 8. Solu-Medrol IV. 9. Epivir. 10. Ziagen. 11. Protonix. 12. Ancef. 13. Azithromycin. ALLERGIES: NO KNOWN DRUG ALLERGIES. SOCIAL HISTORY: Single and apparently on disability. Positive for smoking and alcohol use as well as cocaine and marijuana. REVIEW OF SYSTEMS: Unobtainable. He is unresponsive and intubated. LABORATORY STUDIES: White blood cell count 14.8, hemoglobin 14.6, platelet count 108,000. PT 10.7. INR 1.0, PTT 28. Sodium 140, potassium 3.7, BUN 13, creatinine 2.03, glucose 113. Blood gas had a pH of 7.27, pC02 49, p02 80 on 65% FIO2. PHYSICAL EXAMINATION: VITAL SIGNS: Temperature 97.9, pulse is 61, respiratory rate is 16, blood pressure 108/64, oxygen saturations 94% on 65% FIO2 HEAD: No Young's or raccoon sign. NECK: Neck is supple. CHEST: Scattered rhonchi. HEART: Regular rate rhythm. Normal S1-S2. ABDOMEN: Abdomen soft and nontender. He is morbidly obese. EXTREMITIES: Mild edema. NEUROLOGICAL EXAMINATION: He is intubated but has not received any sedation for the past day. Pupils are 5 mm fixed and dilated nonreactive. Negative corneal reflex, negative doll's reflex, negative gag reflex, negative cough reflex and no motor responses to central painful stimulation. He does not breathe spontaneously over the ventilator. GCS is 3 with loss of brainstem reflexes. IMPRESSION: 1. Right hemisphere stroke with mass effect and midline shift on the CT scan from last evening. Unfortunately. his exam has progressed to a clinical brain at this point. 2. Extensive medical comorbidities as mentioned above. PLAN: The patient unfortunately has suffered a devastating neurologic insult, which does not seem to be reversible. He will not benefit from any neurosurgical intervention. This was discussed with the tipple repairer, Dr. Keyur Crawford. MD KEITH Mock/MAGO /12:45 PM /12:58 PM
--- NOTE | 2016-11-30 20:01 | MB ---
cc: RICHY PIERRE M.D. DATE OF CONSULTATION: 11/30/2016. HISTORY OF PRESENT ILLNESS: A 56-year-old man admitted on the with shortness of breath, 02 saturations in the 90s, respiratory rate in the 60s, blood pressure was 167 with history of COPD, congestive heart failure, and hypertension. He was given some Ativan for intubation. PAST MEDICAL HISTORY: 1. Congestive heart failure. 2. HIV. 3. Obesity. MEDICATIONS ON ADMISSION: 1. Tramadol. 2. Metformin. 3. Atorvastatin. 4. . 5. Antivirals. 6. Flexeril. 7. Gabapentin. The patient had been taken off sedatives but had not awakened and a CT scan yesterday showed a large acute right middle cerebral artery infarct with 13 mm of leftward midline shift with what appeared to be herniation. Prior CT had been negative on the . I was called by the supervisor advice earlier today about the case. I reviewed the CT and recommended neurosurgery see the patient along with some mannitol as the patient had appeared to have herniated. Dr. White, from neurosurgery, has seen the patient and he noted he had not received any sedation for the last day and that his pupils were fixed and dilated. He was not breathing over the ventilator. He thought he was likely clinically brain . EXAMINATION: On exam, the pupils are fixed and dilated. There was no corneals present bilaterally. Corneals were absent. Dolls eyes were abnormal bilaterally. There was no reaction to voice or pinch. He is areflexic throughout. He is flaccid throughout. There is no ankle clonus. Toes were mute. Deep nasal stimulation elicited no response. IMPRESSION He does appear to be likely brain . I did discuss with the supervisor advice that we could do a nuclear brain flow study tomorrow. I did review the CT and it showed a massive infarct with severe shift and herniation. I did relay this to his significant other tonight. MD MAGDALENO Santizo/MAGO /7:36 PM /7:51 PM
--- NOTE | 2016-11-30 20:06 | MG ---
cc: RICHY PIERRE M.D. Lab No: [id number] Date: Age: Sex: M Race: Intubated. Large right stroke. Herniation. DESCRIPTION OF THE RECORDING: The recording shows EKG artifact. I do not see any definite brain activity throughout the entire recording, even at a very low amplitude setting. It appears the patient is likely brain . Clinical correlation is needed. Photic stimulation was performed without significant change in the background or posterior driving. MD MAGDALENO Santizo/MAGO /7:52 PM /8:01 PM
[2016-11-30] MEDS: GABAPENTIN 300 MG CAP PO SCH (20:46)
[2016-11-30] MEDS: ATORVASTATIN 40 MG TAB PO SCH (20:46)
[2016-11-30 23:51] LABS: CD4/CD8 RATIO 0.2 (0.86-5.00)
[2016-12-01] VITALS (36 sets, daily range): BP systolic 94–104; BP diastolic 59–71; PULSE 60–70; RESP 16–39; TEMP 97.2–98.3; O2SAT 89–93
[2016-12-01] MEDS: SODIUM CHLOR 0.9% 1000 ML INJ 1,000 ML IV SCH ×2 (00:21→21:48)
[2016-12-01] MEDS: CEFEPIME INJ 2,000 MG in SODIUM CHLORIDE 0.9% INJ 100 ML IV SCH ×2 (00:40→14:00)
[2016-12-01] MEDS: AZITHROMYCIN INJ 500 MG in SODIUM CHLOR 0.9% 250 ML INJ 250 ML IV SCH (00:40)
[2016-12-01] MEDS: INSULIN ASPART SUPPLEMENTAL SCALE SQ SCH ×4 (04:59→18:00)
[2016-12-01] MEDS: SULFAMETHOX/TRIMETHOPRIM INJ 320 MG in DEXTROSE 5% IN WATE 500 ML INJ 500 ML IV SCH ×6 (05:09→21:47)
[2016-12-01 07:06] LABS: BLOOD GAS BASE EXCESS -4.2 mmol/L (-2-2); BLOOD GAS CARBOXYHEMOGLOBIN 1.1 % (0-4); BLOOD GAS HCO3 21 mmol/L (22-26); BLOOD GAS METHEMOGLOBIN 1.1 % (0-2); BLOOD GAS OXYGEN CONTENT 18.9 Vol % (12.0-20.0); BLOOD GAS PCO2 40 mmHg (38-42); BLOOD GAS PO2 59 mmHg (61-120); BLOOD GAS TOTAL HGB 15.6 G/DL (12.0-16.0); TEMP CORR TO 98.6
[2016-12-01 07:09] LABS: CRITICAL VALUE YES; OXYGEN DEVICE VENTILATOR
[2016-12-01 07:10] LABS: BLOOD GAS O2 HGB SATURATION 86 % (90-100); DRAW SITE RT RADIAL; FIO2 70 %; NUMBER OF ARTERIAL PUNCTURES 1; STAT YES; ULNAR PULSE PRESENT; VENT SETTINGS PRVC/AC26/0.8ITIME/
--- NOTE | 2016-12-01 07:31 | RADRPT ---
EXAM DATE/TIME: 12/01/2016 06:48 [facility] COMPARISON: CHEST SINGLE AP, November 30, 2016, 3:32. INDICATIONS : Shortness of breath, possible pulmonary disease. MEDICAL HISTORY : None. SURGICAL HISTORY : None. ENCOUNTER: Subsequent ACUITY: 1 week PAIN SCORE: Non-responsive. LOCATION: Bilateral chest FINDINGS: A single view of the chest demonstrates stable position of the endotracheal tube and nasogastric tube . Cardiomegaly with bibasilar densities, unchanged. Small pleural effusions. Osseous structures are intact. CONCLUSION: Stable chest with cardiomegaly, bibasilar densities and small pleural effusions. Bill Dos Santos MD on December 01, 2016 at 7:29 Board Certified Radiologist. This report was verified electronically.
[2016-12-01] MEDS: CHLORHEXIDINE 0.12% (ORAL KIT) 15 ML CUP MT SCH ×2 (08:00→21:48)
[2016-12-01] MEDS: LINEZOLID 600 MG TAB PO SCH ×2 (08:00→21:47)
[2016-12-01] MEDS: methylPREDNISolone SOD SUCC 125 MG/2 ML VIAL IV PUSH SCH ×2 (08:00→21:47)
[2016-12-01] MEDS: NON-FORMULARY DRUG (Darunavir-Cobicistat (Prezcobix) 1 TAB) PO SCH (09:00)
[2016-12-01] MEDS: ABACAVIR SULFATE 300 MG TAB PO SCH (09:00)
[2016-12-01] MEDS: SODIUM CHLORIDE 0.9% FLUSH 10 ML FLUSH IV FLUSH SCH ×2 (09:00→21:47)
[2016-12-01] MEDS: HEPARIN SODIUM - SQ 10,000 UNITS/ML VIAL SQ SCH ×2 (09:00→21:47)
[2016-12-01] MEDS: ASPIRIN 81 MG CHEW TAB CHEW SCH (09:00)
[2016-12-01] MEDS: PANTOPRAZOLE SODIUM 40 MG VIAL IV SCH (09:00)
[2016-12-01 10:47] LABS: HEMATOCRIT 47.6 % (39.0-51.0); MEAN CORPUSCULAR HEMOGLOBIN 29.4 PG (27.0-34.0); MEAN CORPUSCULAR HGB CONC 31.6 % (32.0-36.0); PLATELET COUNT 91 TH/MM3 (150-450); RED BLOOD COUNT 5.12 MIL/MM3 (4.50-5.90); RED CELL DISTRIBUTION WIDTH 16.7 % (11.6-17.2); WHITE BLOOD COUNT 16.1 TH/MM3 (4.0-11.0)
[2016-12-01 11:17] LABS: MAGNESIUM 3.5 MG/DL (1.5-2.5)
[2016-12-01 11:23] LABS: POTASSIUM 5.1 MEQ/L (3.5-5.1)
--- NOTE | 2016-12-01 13:02 | RADRPT ---
EXAM DATE/TIME: 12/01/2016 11:41 [facility] COMPARISON: No previous studies available for comparison. INDICATIONS : Stroke. Brain infarction. DOSE: 24.5 mCi Tc99m DTPA IV The diagnosis of brain is clinical and the results of this test should be taken in the content of clinical and electrocephalographic data. MEDICAL HISTORY : Chronic obstructive pulmonary disease. Congestive heart failure. SURGICAL HISTORY : None. ENCOUNTER: Initial ACUITY: 1 day PAIN SCALE: 0/10 LOCATION: Head. TECHNIQUE: Anterior dynamic imaging as well as delayed static imaging. FINDINGS: No flow seen in the brain. No venous sinus activity. CONCLUSION: Brain . Bill Dos Santos MD on December 01, 2016 at 12:59 Board Certified Radiologist. This report was verified electronically.
[2016-12-01 14:26] LABS: BLOOD GAS BASE EXCESS -4.5 mmol/L (-2-2); BLOOD GAS CARBOXYHEMOGLOBIN 0.9 % (0-4); BLOOD GAS HCO3 21 mmol/L (22-26); BLOOD GAS METHEMOGLOBIN 1.2 % (0-2); BLOOD GAS O2 HGB SATURATION 91 % (90-100); BLOOD GAS OXYGEN CONTENT 19.7 Vol % (12.0-20.0); BLOOD GAS PCO2 44 mmHg (38-42); BLOOD GAS PO2 77 mmHg (61-120); BLOOD GAS TOTAL HGB 15.4 G/DL (12.0-16.0); TEMP CORR TO 98.6
[2016-12-01 14:27] LABS: CRITICAL VALUE YES; OXYGEN DEVICE VENTILATOR; VENT SETTINGS PRVC/AC600/28/8PEEP
[2016-12-01 14:28] LABS: DRAW SITE RT RADIAL; FIO2 100 %; NUMBER OF ARTERIAL PUNCTURES 1; STAT NO; ULNAR PULSE PRESENT
--- NOTE | 2016-12-01 15:26 | HHI.NPPN ---
Subjective Renal Failure: Acute Additional Remarks Patient remains intubated, apparently brain Review of Systems General General Remarks unable to obtain Objective Data Data Vital Signs Date Time Temp Pulse Resp B/P (MAP) Pulse Ox O2 Delivery O2 Flow Rate FiO2 12/01/16 14:30 61 28 90 12/01/16 14:00 61 28 104/70 (81) 91 12/01/16 14:00 61 12/01/16 13:30 62 28 90 12/01/16 13:00 62 28 95/61 (72) 90 12/01/16 12:55 63 28 99/63 (75) 91 12/01/16 12:30 62 28 91 12/01/16 12:16 63 39 95/64 (74) 91 12/01/16 12:15 91 100 12/01/16 12:00 61 12/01/16 12:00 98.1 62 28 97/63 (74) 91 12/01/16 12:00 65 12/01/16 11:40 92 100 12/01/16 11:30 62 28 91 12/01/16 11:00 63 28 92 12/01/16 10:30 63 28 91 12/01/16 10:00 61 12/01/16 10:00 63 30 90 12/01/16 09:30 63 30 91 12/01/16 09:00 64 28 91 12/01/16 08:30 64 28 91 12/01/16 08:00 65 12/01/16 08:00 61 12/01/16 08:00 97.9 70 16 95/59 (71) 93 12/01/16 08:00 64 28 91 12/01/16 07:04 90 100 12/01/16 06:00 61 12/01/16 04:37 90 70 12/01/16 04:00 65 12/01/16 04:00 61 12/01/16 04:00 61 12/01/16 04:00 98.3 70 16 95/59 (71) 93 12/01/16 02:00 61 12/01/16 00:17 92 65 12/01/16 00:00 98.3 63 16 103/71 (82) 93 12/01/16 00:00 65 12/01/16 00:00 61 11/30/16 22:00 61 11/30/16 20:29 92 65 11/30/16 20:00 61 11/30/16 20:00 65 11/30/16 20:00 97.9 61 16 89/66 (74) 93 11/30/16 18:00 61 11/30/16 16:00 97.9 72 16 102/70 (81) 93 11/30/16 16:00 65 11/30/16 16:00 61 -: 12/01/16 0750 12/01/16 0750 Tubes & Lines: Cardoza Tubes & Lines Comment ETT, OG tube Drip Comment propofol, fentanyl Physical Exam General Appearance: Well Developed, Well Nourished, No Acute Distress Neck Neck Exam: Trachea Midline Pulmonary Resp Exam: No Distress, Rhonchi Cardiology CV Exam: Regular, Normal Sinus Rhythm Gastrointestinal/Abdomen GI Exam: Soft, Non-Tender Musculoskeletal MS Exam: Joints Intact, Normal Tone Integumentary Skin Exam: Warm, Dry Extremeties Extremities Exam: No Edema, Pedal Pulses Palpable Neurologic Neuro Exam: Unresponsive Assessment/Plan Discussed Condition With: Relative Assessment Summary: DIONY/Acute Renal Failure Electrolyte Assessment: Metabolic Acidosis Problem List: (1) Acute kidney injury ICD Codes: N17.9 - Acute kidney failure, unspecified Status: Acute Plan: No baseline labs for comparison. Renal failure may be due to renal hypoperfusion and sepsis induced ATN. Positive cocaine. FeNa is low, < 1%, consistent with above creatinine stable at 3 Avoid nephrotoxic agents. On Phoslo with tube feeding Maintain MAP above 65. Possibly brain with CVA/ herniation. Follow with neurology. (2) HIV (human immunodeficiency virus infection) ICD Codes: B20 - Human immunodeficiency virus [HIV] disease Status: Acute Plan: On HAART. (3) Respiratory failure ICD Codes: J96.90 - Respiratory failure, unspecified, unspecified whether with hypoxia or hypercapnia Status: Acute Plan: Apparent brain Problem Qualifiers (1) Respiratory failure: Praveen Sky MD Dec 01, 2016 15:26
--- NOTE | 2016-12-01 17:59 | HHI.CCPN ---
Subjective Remarks/Hospital Course 56-year-old male was brought to the ER with a history of progressive shortness of breath for about a day. EMS was called by patient's and on their arrival he was maintaining O2 sats in the 90s however was breathing in the 60s with altered mental status and diaphoresis. Reportedly earlier in the day he had hit his head pretty hard while reaching for his nebulizer and since then had altered mental status. Patient received Ativan and etomidate in the field and was intubated prior to arrival in the ER. He was placed on propofol/ fentanyl and subsequently on Versed gtt by ER physician due to agitation. Subjective: 11/28: Afebrile. Patient was noted to be oliguric last evening, 500 cc bolus normal saline was provided, with no change in urine output. Creatinine noted to be increasing, Nephrology consulted. Renal ultrasound pending. The patient was noted to have gram-positive cocci bacteremia, currently on azithromycin and cefepime. Leukocytosis worsening, ID consulted 11/29: Tmax 101.0 Patient was noted to have ventilator dyssynchrony with over breathing throughout the night, medications/ventilator adjusted accordingly. ABG pending. Creatinine increased, nephrology following. PhosLo added to medication regimen. Leukocytosis resolving.ID following. Patient still nonresponsive on sedation vacation, repeat CT brain pending 11/30:CT of the brain performed last night, revealed large subacute right MCA infarct with a 13 mm midline shift. Neurology and Neurosurgery was consulted. Discussed with Dr. Hardin, CT results and mannitol 25 g was given, the patient continues to be hyperventilated head of bed elevated. Called (Nsgy) and spoke with him provided information for evaluation for possible intervention. EEG pending. Currently the patient is not responsive to deep pain, sedation off for approximately 20 hours. 12/01: Nuclear study consistent with brain . Extensive discussion with family, made aware. Discussed with Dr. Hardin, and . Plan for withdrawal of equipment at 12 noon 12/02/16. [employer] notification performed. Objective Vital Signs Date Time Temp Pulse Resp B/P (MAP) Pulse Ox O2 Delivery O2 Flow Rate FiO2 12/01/16 15:45 91 100 12/01/16 14:30 61 28 12/01/16 14:00 104/70 (81) 12/01/16 12:00 98.1 Intake and Output 12/01/16 12/01/16 12/01/16 07:59 15:59 23:59 Intake Total 1275 ml Output Total 925 ml Balance 350 ml Result Diagram: 12/01/16 0750 12/01/16 0750 Other Results Laboratory Tests Test 12/01/16 06:53 12/01/16 08:25 Blood Gas Puncture Site RT RADIAL RT RADIAL Blood Gas Patient Temperature 98.6 98.6 Blood Gas HCO3 21 mmol/L (22-26) 21 mmol/L (22-26) Blood Gas Base Excess -4.2 mmol/L (-2-2) -4.5 mmol/L (-2-2) Blood Gas Oxygen Saturation 86 % (90-100) 91 % (90-100) Arterial Blood pH 7.33 (7.380-7.420) 7.29 (7.380-7.420) Arterial Blood Partial Pressure CO2 40 mmHg (38-42) 44 mmHg (38-42) Arterial Blood Partial Pressure O2 59 mmHg (61-120) 77 mmHg (61-120) Arterial Blood Oxygen Content 18.9 Vol % (12.0-20.0) 19.7 Vol % (12.0-20.0) Arterial Blood Carboxyhemoglobin 1.1 % (0-4) 0.9 % (0-4) Arterial Blood Methemoglobin 1.1 % (0-2) 1.2 % (0-2) Blood Gas Hemoglobin 15.6 G/DL (12.0-16.0) 15.4 G/DL (12.0-16.0) Oxygen Delivery Device VENTILATOR VENTILATOR Blood Gas Ventilator Setting PRVC/AC26/0.8ITIME/ PRVC/AC600/28/8PEEP Blood Gas Inspired Oxygen 70 % 100 % Imaging Last Impressions Chest X-Ray 11/26/16 2442 Signed Impressions: Service Date/Time: Saturday, November 26, 2016 23:10 - CONCLUSION: ET tube in good position. Jone Reyes MD Objective Remarks Narrative General: The patient is a well-developed well-nourished overweight male, orally intubated on mechanical ventilation, nonresponsive Head and Neck exam: Head is normocephalic atraumatic. All tracheally intubated Eyes: Pupils are equal round, 5 mm, fixed and dilated. Nose: Midline septum with pink mucous membranes Mouth: Dentition unremarkable. Moist mucous membranes. ETT insitu Neck: No palpable lymphadenopathy. No nuchal rigidity. No thyromegaly. Cardiovascular: S1-S2 regular no gallop or murmur. Telemetry normal sinus rhythm Lungs: Orotracheally intubated on mechanical ventilation, and entry decreased bilaterally at bases, scattered and rhonchi. Abdomen:Soft, without tenderness to palpation in all 4 quadrants of the abdomen. No guarding, rebound, or rigidity. Normal bowel sounds are audible. The patient has an umbilical hernia that is easily reducible. The patient has rectus diastases noted. Extremities: No clubbing or cyanosis. The patient has trace to 1+ pitting edema bilateral lower extremities. 2+ pulses in all 4 extremities. Neurologic Exam: GCS 3T. Intubated on mechanical ventilation. Reportedly was difficult to sedate and was moving all 4 extremities though not following commands following arrival in the ER. Pupils 5mm, fixed and dilated. Gated cough gag and pupillary reflexes. Skin Exam: No rash noted. Intact skin that is warm and dry. Procedures Nuclear scan brain flow study- consistent with brain A/P Assessment and Plan 56-year-old male with: Acute respiratory failure requiring mechanical ventilation Suspected COPD exacerbation Suspect obesity hypoventilation syndrome Possible severe sepsis based on criteria Positive troponin Morbid obesity HIV positive History of CHF History of hypertension Persistent leukocytosis Polycythemia Polysubstance abuse (THC, Cocaine) Large right MCA infarct with midline shift Plan: Neuro: Sedation(Propofol and Fentanyl) off since 11/[address] brain 11/27-no acute abnormalities Repeat CT brain 11/29-large subacute right MCA infarct with 13 mm left midline shift Neurology consulted-spoke with Dr. Hardin- Brain Neurosurgery consulted-spoke with Dr. White-Brain Nuclear Scan -Brain Dispo: Brain . Large right MCA infarct with significant midline shift. EEG pending. Dr. Hardin ,Dr. White in concurrence. Plan for removal of equipment / withdrawal at 1200 12/02/16. Palliative care has been consulted for support. Level 1 Physician Zelda Becerra MD Dec 01, 2016 17:59
[2016-12-01] MEDS: ATORVASTATIN 40 MG TAB PO SCH (21:47)
[2016-12-01] MEDS: GABAPENTIN 300 MG CAP PO SCH (21:47)
[2016-12-02] VITALS (9 sets, daily range): BP systolic 92–103; BP diastolic 61–68; PULSE 59–66; RESP 28; TEMP 97.6–97.8; O2SAT 90–94
[2016-12-02] MEDS: CEFEPIME INJ 2,000 MG in SODIUM CHLORIDE 0.9% INJ 100 ML IV SCH (02:00)
[2016-12-02] MEDS: AZITHROMYCIN INJ 500 MG in SODIUM CHLOR 0.9% 250 ML INJ 250 ML IV SCH (02:00)
[2016-12-02] MEDS: CHLORHEXIDINE GLUCONATE 2 % 1 PACK (2 CLOTHS) TOP SCH (04:31)
[2016-12-02] MEDS: INSULIN ASPART SUPPLEMENTAL SCALE SQ SCH ×2 (06:00)
[2016-12-02] MEDS: SULFAMETHOX/TRIMETHOPRIM INJ 320 MG in DEXTROSE 5% IN WATE 500 ML INJ 500 ML IV SCH ×2 (06:27)
--- NOTE | 2016-12-02 12:21 | HHI.HCPN ---
Consulted to assist family after brain . Chart reviewed for medical information. Formal consult not done as patient declared brain on 12/01/16 at 11:45am. Also present Yesenia Genao LCSW. Discussed with nursing staff and Dr. Sparrow. Arrived to unit to meet various family members intermittently (over 3 hours time) visiting including siblings, children, grandchildren and many others. Reviewed brain and plan to extubate after all family arrives around noon. Offered marriage and family social worker, family declined as they have their own spiritual support. Letter provided for family member per her request. Offered support. . Ambar Gamez Dec 02, 2016 12:21
--- NOTE | 2016-12-02 12:45 | HHI.NPPN ---
Subjective Renal Failure: Acute Interval History He remains intubated. Family to remove from life support given confirmation of brain s/p CVA. (Yokasta Toth) Review of Systems General General Remarks unable to obtain (Yokasta Toth) Objective Data Data Vital Signs Date Time Temp Pulse Resp B/P (MAP) Pulse Ox O2 Delivery O2 Flow Rate FiO2 12/02/16 10:28 100 12/02/16 08:00 63 12/02/16 08:00 100 12/02/16 08:00 97.6 63 28 103/68 (80) 90 12/02/16 07:49 92 100 12/02/16 06:00 66 12/02/16 04:00 100 12/02/16 04:00 60 12/02/16 04:00 97.8 60 28 96/64 (75) 91 12/02/16 03:06 90 100 12/02/16 02:00 59 12/02/16 00:50 90 100 12/02/16 00:00 59 12/02/16 00:00 59 28 92/61 (71) 90 12/02/16 00:00 100 12/01/16 22:00 60 12/01/16 20:38 89 100 12/01/16 20:00 60 12/01/16 20:00 97.2 60 28 97/70 (79) 90 12/01/16 20:00 100 12/01/16 18:00 60 28 94/65 (75) 90 12/01/16 18:00 61 12/01/16 17:30 60 28 91 12/01/16 17:00 60 28 94/64 (74) 90 12/01/16 16:30 60 28 91 12/01/16 16:00 65 12/01/16 16:00 61 12/01/16 16:00 62 28 95/61 (72) 90 12/01/16 16:00 60 28 96/65 (75) 91 12/01/16 15:45 91 100 12/01/16 15:30 61 28 91 12/01/16 15:00 61 28 100/68 (79) 90 12/01/16 14:30 61 28 90 12/01/16 14:30 61 28 90 12/01/16 14:00 61 28 104/70 (81) 91 12/01/16 14:00 61 28 104/70 (81) 91 12/01/16 14:00 61 12/01/16 13:30 62 28 90 12/01/16 13:00 62 28 95/61 (72) 90 12/01/16 12:55 63 28 99/63 (75) 91 (Yokasta Toth) -: 12/01/16 0750 12/01/16 0750 Imaging Last Impressions Chest X-Ray 12/01/16 0000 Signed Impressions: Service Date/Time: Thursday, December 01, 2016 06:48 - CONCLUSION: Stable chest with cardiomegaly, bibasilar densities and small pleural effusions. Bill Dos Santos MD Head CT 11/29/16 0000 Signed Impressions: Service Date/Time: Tuesday, November 29, 2016 21:12 - CONCLUSION: Large subacute right middle cerebral artery distribution infarct with 13 mm of leftward midline shift. Jeison Coles MD Renal Ultrasound 11/28/16 0000 Signed Impressions: Service Date/Time: November 19:08 - CONCLUSION: Normal examination for a patient of this age. Edenilson Mejia MD Tubes & Lines: Cardoza Tubes & Lines Comment ETT, OG tube Drip Comment propofol, fentanyl (Yokasta Toth) Physical Exam General Appearance: Well Developed, Well Nourished, No Acute Distress Appearance Remarks intubated, sedated (Yokasta Toth) Neck Neck Exam: Trachea Midline (Yokasta Toth) Pulmonary Resp Exam: No Distress, Rhonchi Resp Remarks vented lung sounds (Yokasta Toth) Cardiology CV Exam: Regular, Normal Sinus Rhythm (Yokasta Toth) Gastrointestinal/Abdomen GI Exam: Soft, Non-Tender (Yokasta Toth) Musculoskeletal MS Exam: Joints Intact, Normal Tone (Yokasta Toth) Integumentary Skin Exam: Warm, Dry (Yokasta Toth) Extremeties Extremities Exam: No Edema, Pedal Pulses Palpable (Yokasta Toth) Neurologic Neuro Exam: Unresponsive (Yokasta Toth) Assessment/Plan Discussed Condition With: Relative Assessment Summary: DIONY/Acute Renal Failure Electrolyte Assessment: Metabolic Acidosis Problem List: (1) Acute kidney injury ICD Codes: N17.9 - Acute kidney failure, unspecified Status: Acute Plan: No baseline labs for comparison. Renal failure may be due to renal hypoperfusion and sepsis induced ATN. he did test Positive for cocaine. renal function is stable, urine output is adequate family has decided to remove from life support we will sign off at this time, notify us for changes (2) HIV (human immunodeficiency virus infection) ICD Codes: B20 - Human immunodeficiency virus [HIV] disease Status: Acute Plan: On HAART. (3) Respiratory failure ICD Codes: J96.90 - Respiratory failure, unspecified, unspecified whether with hypoxia or hypercapnia Status: Acute Plan: new diagnosis of brain he is to be removed from palliative following (Yokasta Toth) Plan patient was seen and examined. Withdrawal of care is planned. (Kun Cooper MD) Problem Qualifiers (1) Respiratory failure: Yokasta Toth Dec 02, 2016 12:45 Kun Cooper MD Dec 03, 2016 11:17
--- NOTE | 2017-01-28 08:19 | DEATH SUM ---
Summary Demographics Date Pronounced : Dec 01, 2016 Time Of : 1145 Preliminary Cause of : Brain Ivan Howell MD Jan 28, 2017 08:19
--- NOTE | 2017-01-28 08:21 | HHI.DS ---
Discharge Summary Admission Date Nov 27, 2016 at 00:34 Discharge Date: Dec 02, 2016 Admitting Diagnosis Respiratory failure (1) Acute ischemic stroke ICD Code: I63.9 - Cerebral infarction, unspecified Diagnosis: Principal Status: Acute Procedures Nuclear scan brain flow study- consistent with brain Brief History HPI 56-year-old male was brought to the ER with a history of progressive shortness of breath for about a day. EMS was called by patient's and on their arrival he was maintaining O2 sats in the 90s however was breathing in the 60s with altered mental status and diaphoresis. Reportedly earlier in the day he had hit his head pretty hard while reaching for his nebulizer and since then had altered mental status. Patient received Ativan and etomidate in the field and was intubated prior to arrival in the ER. He was placed on propofol/ fentanyl and subsequently on Versed gtt by ER physician due to agitation. [facility] Past Medical History Narrative Medical The patient's past medical history as it can for hypertension, COPD, congestive heart failure, obesity, HIV Allergies-Medications (Allergen,Severity, Reaction): Coded Allergies: No Known Allergies (Unverified , 11/26/16) Reported Meds & Prescriptions Reported Meds & Active Scripts Active Zovirax 800 Mg Tab (Acyclovir) 800 Mg Tab 800 Mg PO 5 TIMES A DAY 7 Days Lidocaine Viscous (Lidocaine HCl) 2 % [place] 2 % MT Q3-4HPRN 1 Days Reported Lisinopril 10 Mg Tab 10 Mg PO DAILY Norvasc (Amlodipine Besylate) 10 Mg Tab 10 Mg PO DAILY Proventil Conc Ud 0.5% (2.5 Mg/0.5 Ml) (Albuterol Sulfate) 2.5 Mg/0.5 Ml Inha 2.5 Mg INH other meds to be clarified Review of Systems ROS Limitations: Intubated Respiratory: Positive: Shortness of Breath Physical Exam Significant Findings CT/MRI - Massive right MCA ischemic stroke. PE at Discharge Transfer Summary Patient progressed to brain and was declared brain on 12/01/16 and 1145 hours. Patient was discharged the next day, 12/02/16 to the [facility] [place] after family gathered. Hospital Course 56-year-old male was brought to the ER with a history of progressive shortness of breath for about a day. EMS was called by patient's and on their arrival he was maintaining O2 sats in the 90s however was breathing in the 60s with altered mental status and diaphoresis. Reportedly earlier in the day he had hit his head pretty hard while reaching for his nebulizer and since then had altered mental status. Patient received Ativan and etomidate in the field and was intubated prior to arrival in the ER. He was placed on propofol/ fentanyl and subsequently on Versed gtt by ER physician due to agitation. Subjective: 11/28: Afebrile. Patient was noted to be oliguric last evening, 500 cc bolus normal saline was provided, with no change in urine output. Creatinine noted to be increasing, Nephrology consulted. Renal ultrasound pending. The patient was noted to have gram-positive cocci bacteremia, currently on azithromycin and cefepime. Leukocytosis worsening, ID consulted 11/29: Tmax 101.0 Patient was noted to have ventilator dyssynchrony with over breathing throughout the night, medications/ventilator adjusted accordingly. ABG pending. Creatinine increased, nephrology following. PhosLo added to medication regimen. Leukocytosis resolving.ID following. Patient still nonresponsive on sedation vacation, repeat CT brain pending 11/30:CT of the brain performed last night, revealed large subacute right MCA infarct with a 13 mm midline shift. Neurology and Neurosurgery was consulted. Discussed with Dr. Hardin, CT results and mannitol 25 g was given, the patient continues to be hyperventilated head of bed elevated. Called (Nsgy) and spoke with him provided information for evaluation for possible intervention. EEG pending. Currently the patient is not responsive to deep pain, sedation off for approximately 20 hours. 12/01: Nuclear study consistent with brain . Extensive discussion with family, made aware. Discussed with Dr. Hardin, and . Plan for withdrawal of equipment at 12 noon 12/02/16. [employer] notification performed. Pt Condition on Discharge: Deteriorating Ivan Howell MD Jan 28, 2017 08:20
== END 2016-12-01 11:45 | disposition expired | DRG 871 ==
LOC: NEPE 23:06 → NEDA 11-27 00:34 → HIMW 11-27 02:30
PROVIDERS: ADMIT Internal Medicine Critical Care Medicine; ATTEND Internal Medicine Critical Care Medicine
PROC: 0BH17EZ Insertion of Endotracheal Airway into Trachea, Via Natural or Artificial Opening (ICD-10-PCS; principal; 2016-11-27)
PROC: 5A1945Z Respiratory Ventilation, 24-96 Consecutive Hours (ICD-10-PCS; 2016-11-27)
DX: A40.8 Other streptococcal sepsis (principal); B20 Human immunodeficiency virus [HIV] disease; J96.01 Acute respiratory failure with hypoxia; I63.511 Cerebral infarction due to unspecified occlusion or stenosis of right middle cerebral artery; N17.0 Acute kidney failure with tubular necrosis; I11.0 Hypertensive heart disease with heart failure; E87.2 Acidosis; I50.9 Heart failure, unspecified; J18.9 Pneumonia, unspecified organism; J44.0 Chronic obstructive pulmonary disease with (acute) lower respiratory infection; E66.2 Morbid (severe) obesity with alveolar hypoventilation; D75.1 Secondary polycythemia; B95.4 Other streptococcus as the cause of diseases classified elsewhere; E87.5 Hyperkalemia; F12.10 Cannabis abuse, uncomplicated; F14.10 Cocaine abuse, uncomplicated; Z79.899 Other long term (current) drug therapy
CPT/HCPCS: 36600; 51702; 70450; 71010; 76775; 76937; 78606; 80048; 80053; 80307; 81001; 82550; 82552; 82570; 82805; 82948; 83605; 83615; 83690; 83735; 83880; 84100; 84300; 84443; 84484; 85025; 85027; 85610; 85730; 86140; 86355; 86357; 86359; 86360; 87040; 87086; 87186; 87205; 87449; 87641; 93005; 93306; 94002; 94003; 94640; 94664; 95819; 96365; 96368; 96375; 96376; A9539; C9113; J0456; J0610; J0692; J1644; J1815; J1940; J2150; J2250; J2930; J3010; J7030; J7040; J7050; J7060; J7613